=== PATIENT | female | born 1950 | race Caucasian/White ===

== ENCOUNTER 2023-07-01 17:04 | Inpatient (IN) | payer MEDICARE ==
[2023-07-01 17:41] LABS: Basophils % (A) 0 %; Eosinophils # (A) 0.1 k/uL (0-0.7); Eosinophils % (A) 2 %; HCT 37.4 % (34.0-46.0); HGB 13.3 gm/dL (11.4-16.0); Lymphocytes # (A) 2.9 k/uL (1.0-4.8); Lymphocytes % (A) 40 %; MCH 32.3 pg (25.0-35.0); MCHC 35.6 g/dL (31.0-37.0); MCV 90.9 fL (80.0-100.0); Monocytes # (A) 0.4 k/uL (0-1.0); Monocytes % (A) 5 %; Neutrophils # (A) 3.7 k/uL (1.3-7.7); Neutrophils % (A) 52 %; Platelet Count 276 k/uL (150-450); RBC 4.11 m/uL (3.80-5.40); RDW 13.1 % (11.5-15.5); WBC 7.1 k/uL (3.8-10.6)
--- NOTE | 2023-07-01 17:49 | ED ---
General Adult HPI - General Chief complaint: Fall Stated complaint: Fall, L Hip Pain Time Seen by Provider: 07/01/23 17:05 Source: patient, EMS, RN notes reviewed, old records reviewed Mode of arrival: EMS Limitations: no limitations - History of Present Illness Initial comments: This is a 70-year-old female who presents emergency Department who fell today and hurt her left hip patient was unable to get up and walk on her own because of the severe pain in the left hip. Patient also hit the back of her head she complains of a little bit of a headache and a little bit of neck soreness. Patient is not on any blood thinners. Patient denies any chest or back pain. Patient denies any other extremity pain. - Related Data Home Medications Medication Instructions Recorded Confirmed Amitriptyline HCl [Elavil] 25 mg PO QID 07/01/23 07/01/23 Meloxicam [Mobic] 15 mg PO DAILY 07/01/23 07/01/23 Allergies Allergy/AdvReac Type Severity Reaction Status Date / Time No Known Allergies Allergy Verified 07/01/23 19:00 Review of Systems ROS Statement: Those systems with pertinent positive or pertinent negative responses have been documented in the HPI. ROS Other: All systems not noted in ROS Statement are negative. Past Medical History Past Medical History: COPD History of Any Multi-Drug Resistant Organisms: None Reported Past Surgical History: Tonsillectomy Past Psychological History: No Psychological Hx Reported Smoking Status: Never smoker Past Alcohol Use History: Occasional Past Drug Use History: None Reported General Exam - General Exam Comments Initial Comments: GENERAL: Patient is well-developed and well-nourished. Patient is nontoxic and well- hydrated and is in moderate distress. ENT: Neck is soft and supple. No significant lymphadenopathy is noted. Oropharynx is clear. Moist mucous membranes. Neck has full range of motion without eliciting any pain. EYES: The sclera were anicteric and conjunctiva were pink and moist. Extraocular movements were intact and pupils were equal round and reactive to light. Eyelids were unremarkable. PULMONARY: Unlabored respirations. Good breath sounds bilaterally. No audible rales r honchi or wheezing was noted. CARDIOVASCULAR: There is a regular rate and rhythm without any murmurs gallops or rubs. ABDOMEN: Soft and nontender with normal bowel sounds. SKIN: Skin is clear with no lesions or rashes and otherwise unremarkable. NEUROLOGIC: Patient is alert and oriented x3. Cranial nerves II through XII are grossly intact. Motor and sensory are also intact. Normal speech, volume and content. Symmetrical smile. MUSCULOSKELETAL: Lateral left hip is tender to touch and very painful with any movement. LYMPHATICS: No significant lymphadenopathy is noted PSYCHIATRIC: Normal psychiatric evaluation. Limitations: no limitations Course Vital Signs 07/01/23 17:23 Temperature 99.0 F Pulse Rate 93 Respiratory 18 Rate Blood Pressure 164/94 O2 Sat by Pulse 94 L Oximetry Medical Decision Making - Medical Decision Making EKG was interpreted by myself shows a sinus rhythm at 93 bpm MO interval 280 one S is 86 QT interval 350 QTC is 400 per patient's EKG shows no ST segment elevation or depression. Was pt. sent in by a medical professional or institution (, [facility], [facility], urgent care, hospital, or fci...) When possible be specific @ -No Did you speak to anyone other than the patient for history (EMS, parent, family, police, friend...)? What history was obtained from this source @ -EMS gave some of the history as well as the Did you review nursing and triage notes (agree or disagree)? Why? @ -I reviewed and agree with nursing and triage notes Were old charts reviewed (outside hosp., previous admission, EMS record, old EKG, old radiological studies, urgent care reports/EKG's, fci records)? Report findings @ -No old charts were reviewed Differential Diagnosis (chest pain, altered mental status, abdominal pain women, abdominal pain men, vaginal bleeding, weakness, fever, dyspnea, syncope, headache, dizziness, GI bleed, back pain, seizure, CVA, palpatations, mental health, musculoskeletal)? @ -Differential Musculoskeletal Muscular strain, contusion, ligament sprain, fracture, arthritis, septic arthritis, bursitis, cellulitis, muscle spasm, nerve compression, DVT, arterial occlusion, herpes zoster, electrolyte abnormality, tumor.... This is not meant to be in all inclusive list EKG interpreted by me (3pts min.). @ -As above X-rays interpreted by me (1pt min.). @ -X-ray of the hip shows a fracture that is an intratrochanteric fracture of the left hip. Chest x-ray shows no acute abnormality CT interpreted by me (1pt min.). @ -CT of the brain and C-spine showed no acute abnormality U/S interpreted by me (1pt. min.). @ -None done What testing was considered but not performed or refused? (CT, X-rays, U/S, labs)? Why? @ -None What meds were considered but not given or refused? Why? @ -None Did you discuss the management of the patient with other professionals (professionals i.e. DrIsis, PA, [facility], lab, RT, psych nurse, vp digital marketing social media and crm, carpenter helper maintenance, teacher, state patrol officer, disease case manager rn)? Give summary @ -I spoke with Dr. Deleon he agreed to admit the patient Was critical care preformed (if so, how long)? @ -No Were there social determinants of health that impacted care today? How? (Homelessness, low income, unemployed, alcoholism, drug addiction, transportation, low edu. Level, literacy, decrease access to med. care, assisted, rehab)? @ -No Was there de-escalation of care discussed even if they declined (Discuss DNR or withdrawal of care, Hospice)? DNR status @ -No What co-morbidities impacted this encounter? (DM, HTN, Smoking, COPD, CAD, Cancer, CVA, ARF, Chemo, Hep., AIDS, mental health diagnosis, sleep apnea, morbid obesity)? @ -None Was patient admitted / discharged? Hospital course, mention meds given and route, prescriptions, significant lab abnormalities, going to OR and other pertinent info. @ -Patient had an intratrochanteric fracture of the left hip. Patient's CT of the head and neck were normal. Patient will be admitted to Dr. Deleon and has a medicine consult Undiagnosed new problem with uncertain prognosis? @ -No Drug Therapy requiring intensive monitoring for toxicity (Heparin, Nitro, Insulin, Cardizem)? @ -No Were any procedures done? @ -No Diagnosis/symptom? @ -Intertrochanteric fracture Acute, or Chronic, or Acute on Chronic? @ -Acute Uncomplicated (without systemic symptoms) or Complicated (systemic symptoms)? @ -Complicated Side effects of treatment? @ -No Exacerbation, Progression, or Severe Exacerbation? @ -No Poses a threat to life or bodily function? How? (Chest pain, USA, PA, pneumonia, PE, COPD, DKA, ARF, appy, cholecystitis, CVA, Diverticulitis, Homicidal, Suicidal, threat to staff... and all critical care pts) @ -No Diagnosis/symptom? @ -Scalp contusion Acute, or Chronic, or Acute on Chronic? @ -Acute Uncomplicated (without systemic symptoms) or Complicated (systemic symptoms)? @ -Complicated Side effects of treatment? @ -none Exacerbation, Progression, or Severe Exacerbation] @ -no Poses a threat to life or bodily function? @ -no - Lab Data Result diagrams: 07/01/23 17:33 07/01/23 17:33 Lab Results 07/01/23 07/01/23 Range/Units 17:33 17:33 WBC 7.1 (3.8-10.6) k/uL RBC 4.11 (3.80-5.40) m/uL Hgb 13.3 (11.4-16.0) gm/dL Hct 37.4 (34.0-46.0) % MCV 90.9 (80.0-100.0) fL MCH 32.3 (25.0-35.0) pg MCHC 35.6 (31.0-37.0) g/dL RDW 13.1 (11.5-15.5) % Plt Count 276 (150-450) k/uL MPV 7.0 Neutrophils % 52 % Lymphocytes % 40 % Monocytes % 5 % Eosinophils % 2 % Basophils % 0 % Neutrophils # 3.7 (1.3-7.7) k/uL Lymphocytes # 2.9 (1.0-4.8) k/uL Monocytes # 0.4 (0-1.0) k/uL Eosinophils # 0.1 (0-0.7) k/uL Basophils # 0.0 (0-0.2) k/uL Sodium 132 L (137-145) mmol/L Potassium 4.2 (3.5-5.1) mmol/L Chloride 97 L (98-107) mmol/L Carbon Dioxide 26 (22-30) mmol/L Anion Gap 9 mmol/L BUN 13 (7-17) mg/dL Creatinine 0.42 L (0.52-1.04) mg/dL Est GFR (CKD-EPI)AfAm >90 (>60 ml/min/1.73 sqM) Est GFR (CKD-EPI)NonAf >90 (>60 ml/min/1.73 sqM) Glucose 132 H (74-99) mg/dL Calcium 9.1 (8.4-10.2) mg/dL Total Bilirubin 0.6 (0.2-1.3) mg/dL AST 50 H (14-36) U/L ALT 35 H (4-34) U/L Alkaline Phosphatase 60 (38-126) U/L Total Protein 7.1 (6.3-8.2) g/dL Albumin 4.2 (3.5-5.0) g/dL Disposition Clinical Impression: Fall, Intertrochanteric fracture of left hip Disposition: ADMITTED IP TO THIS HOSP Referrals: Chito Gonzalez MD [Primary Care Provider] - 1-2 days Time of Disposition: 20:40
[2023-07-01 18:02] LABS: ALT 35 U/L (4-34); African American GFR (CKD) >90 (>60 ml/min/1.73 sqM); Anion Gap 9 mmol/L; Blood Urea Nitrogen 13 mg/dL (7-17); Calcium 9.1 mg/dL (8.4-10.2); Carbon Dioxide 26 mmol/L (22-30); Chloride 97 mmol/L (98-107); Glucose 132 mg/dL (74-99); Non-African American GFR(CKD) >90 (>60 ml/min/1.73 sqM); Sodium 132 mmol/L (137-145); Total Bilirubin 0.6 mg/dL (0.2-1.3)
[2023-07-01 18:12] LABS: AST 50 U/L (14-36); Albumin 4.2 g/dL (3.5-5.0); Alkaline Phosphatase 60 U/L (38-126); Potassium 4.2 mmol/L (3.5-5.1); Total Protein 7.1 g/dL (6.3-8.2)
--- NOTE | 2023-07-01 18:25 | XR ---
PROCEDURE: XR Hip LT and AP Pelvis - 3V DATE AND TIME: 07/01/2023 5:57 PM CLINICAL INDICATION: Pain after trauma TECHNIQUE: Department protocol COMPARISON: None FINDINGS: There is a comminuted intertrochanteric apex superior lateral fracture of the left femoral neck. The femoral head remains well-seated within the acetabulum. No other fracture identified. IMPRESSION: Left intertrochanteric fracture.
--- NOTE | 2023-07-01 18:35 | XR ---
EXAMINATION: XR chest 1V DATE AND TIME: 07/01/2023 5:57 PM CLINICAL INDICATION: Difficulty breathing TECHNIQUE: AP supine radiograph COMPARISON: None available. FINDINGS: The right hemidiaphragm is elevated, etiology unclear. The lungs appear to be clear, as seen. The pleural spaces appear to be negative, as seen. The cardiac silhouette is not enlarged. Mediastinum is not widened. The skeletal structures and soft tissues are negative for acute findings. IMPRESSION: No definite acute radiographic process. * Limitation: Supine radiography cannot exclude pneumothorax/pneumoperitoneum.
--- NOTE | 2023-07-01 18:56 | CT ---
EXAMINATION TYPE: CT brain romeroine wo con DATE OF EXAM: 07/01/2023 COMPARISON: NONE HISTORY: Pain, fall CT DLP: 1383.7 mGycm. Automated Exposure Control for Dose Reduction was Utilized. TECHNIQUE: CT scan of the head and cervical spine are performed without contrast. FINDINGS: There is no acute intracranial hemorrhage, mass effect, or midline shift identified. The ventricles and sulci are within normal limits in size. The globes are intact and the visualized sin uses are clear. Cervical spine is visualized in its entirety from C1 through upper thoracic levels and demonstrates s atisfactory alignment without evidence of acute fracture or dislocation. Prevertebral soft tissue sophie ears within normal limits. Moderate-marked multilevel cervical spondylosis changes noted. The C1-C2 a rticulation is unremarkable. IMPRESSION: 1. There is no acute fracture or dislocation evident in the cervical spine. 2. No acute intracranial hemorrhage, mass effect, or midline shift is seen.
[2023-07-01] MEDS ORDERED: SODIUM CHLORIDE 0.9% 1,000 ML IV ONE (20:40)
[2023-07-01] MEDS: HYDROmorphone 0.5 MG/0.5 ML SYRINGE IVP PRN (21:48)
[2023-07-02] MEDS: HYDROmorphone 0.5 MG/0.5 ML SYRINGE IVP PRN ×2 (01:21→14:29)
--- NOTE | 2023-07-02 10:31 | P.HPOR ---
History of Present Illness H&P Date: 07/02/23 Chief Complaint: let hip pain, recent fall History of Presenting Illness Patient is a pleasantly confused 73-year-old female who presented to the ER after a fall. Upon exam this morning patient is unable to recall incident or coming to the ER. Patient does state that she lives with her . She states she is normally ambulatory with the assistance of a walker. Patient reports that she did have a fall a few months ago hurting her left hip. She states that she did go to physical therapy and felt she was doing very well. Patient does have a past medical history of COPD. Patient denies any other orthopedic history. X-ray of the left hip and AP pelvis that was taken on 07/01/2023 demonstrates a left intertrochanteric fracture. Review of Systems Pertinent positives and negatives as discussed in HPI, a complete review of systems was performed and all other systems are negative. Physical Examination Inspection: Negative for any open fractures or significant erythema/ulcers. Mild bruising to the left hip. Sensation: Sensation is equal, symmetric, bilaterally intact throughout the upper and lower extremities Palpation: Nontender to palpation throughout bilateral upper and right lower extremities and throughout spine exam. Tenderness to palpation over the left hip. Range of motion: Patient does have full range of motion bilateral upper and right lower extremities on exam. Left lower extremity is externally rotated, limited range of motion due to injury and pain. Motor: 5/5 in all major motor groups in the bilateral upper and right lower extremities. 4-/5 left lower extremity Special tests: Negative Homans bilaterally. Negative Adama bilaterally. Negative clonus bilaterally. Left lower extremity log roll maneuver pain is reproduced. Neurovascular: Radial pulse intact, 2+ bilaterally. Cap refill under 3 seconds in digits upper extremities. Assessment and Plan Fall with trauma Left intertrochanteric hip fracture Maintain nothing by mouth status Surgical procedure scheduled for later today 07/02/2023, left hip IM nail fixation Continue with pain management: IV medication, ice therapy Activity: Bedrest I reviewed and discussed this case with my attending Dr. Deleon, whom has reviewed this chart and films and is in agreement with assessment and plan of care as outlined above. I have personally seen and examined the patient, performed the documentation and the assessment and plan as written. Number of minutes spent on the visit: 20m. Past Medical History Past Medical History: COPD History of Any Multi-Drug Resistant Organisms: None Reported Past Surgical History: Tonsillectomy Past Psychological History: No Psychological Hx Reported Smoking Status: Never smoker Past Alcohol Use History: Occasional Past Drug Use History: None Reported Medications and Allergies Home Medications Medication Instructions Recorded Confirmed Type Amitriptyline HCl [Elavil] 25 mg PO QID 07/01/23 07/01/23 History Meloxicam [Mobic] 15 mg PO DAILY 07/01/23 07/01/23 History Allergies Allergy/AdvReac Type Severity Reaction Status Date / Time No Known Allergies Allergy Verified 07/01/23 19:00 Results - Labs Labs: Abnormal Lab Results - Last 24 Hours (Table) 07/01/23 Range/Units 17:33 Sodium 132 L (137-145) mmol/L Chloride 97 L (98-107) mmol/L Creatinine 0.42 L (0.52-1.04) mg/dL Glucose 132 H (74-99) mg/dL AST 50 H (14-36) U/L ALT 35 H (4-34) U/L H & H 07/01/23 Range/Units 17:33 Hgb 13.3 (11.4-16.0) gm/dL Hct 37.4 (34.0-46.0) % Result Diagrams: 07/01/23 17:33 07/01/23 17:33
[2023-07-02] MEDS ORDERED: TRANEXAMIC ACID 1,000 MG in SODIUM CHLORIDE 0.9% 100 ML IVPB ONE (12:00)
[2023-07-02 12:08] LABS: Basophils % (A) 1 %; Eosinophils # (A) 0.1 k/uL (0-0.7); Eosinophils % (A) 1 %; HGB 11.6 gm/dL (11.4-16.0); Lymphocytes # (A) 3.2 k/uL (1.0-4.8); Lymphocytes % (A) 40 %; MCHC 33.2 g/dL (31.0-37.0); MCV 93.4 fL (80.0-100.0); Mean Platelet Volume 7.2; Monocytes # (A) 0.5 k/uL (0-1.0); Monocytes % (A) 7 %; Neutrophils # (A) 3.9 k/uL (1.3-7.7); Neutrophils % (A) 49 %; Platelet Count 253 k/uL (150-450); RBC 3.75 m/uL (3.80-5.40); RDW 13.5 % (11.5-15.5); WBC 7.9 k/uL (3.8-10.6)
[2023-07-02 12:16] LABS: African American GFR (CKD) >90 (>60 ml/min/1.73 sqM); Anion Gap 6 mmol/L; Blood Urea Nitrogen 16 mg/dL (7-17); Calcium 8.6 mg/dL (8.4-10.2); Carbon Dioxide 29 mmol/L (22-30); Chloride 98 mmol/L (98-107); Glucose 132 mg/dL (74-99); Magnesium 2.1 mg/dL (1.6-2.3); Non-African American GFR(CKD) >90 (>60 ml/min/1.73 sqM); Potassium 3.9 mmol/L (3.5-5.1); Sodium 133 mmol/L (137-145)
[2023-07-02 13:05] LABS: Prothrombin Time 10.4 sec (9.0-12.0)
[2023-07-02] MEDS ORDERED: ACETAMINOPHEN TAB 325 MG TAB PO PRN (16:08)
[2023-07-02] MEDS ORDERED: HYDROcodone/APAP 5-325MG 1 EACH TAB PO PRN (16:08)
[2023-07-02] MEDS ORDERED: HYDROmorphone 0.5 MG/0.5 ML SYRINGE IVP PRN (16:09)
--- NOTE | 2023-07-02 16:30 | P.CONS ---
History of Present Illness - Reason for Consult Consult date: 07/02/23 Medical management, med clearance, history of COPD - History of Present Illness This is a 73-year-old female who presented to the emergency department after suffering a mechanical fall while at the neurology office and mis-stepped off the curb and fell landing directly on her left hip and immediately having pain and inability to ambulate. Patient also hit her head while falling and who was with her reports no loss of consciousness and was alert the entire fall. Patient lives half the year in [place] as well as here in [place] and follows with neurologist Dr. Reyes outpatient and her PCP is Dr. Gonzalez when she is here in [place]. 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 Further history obtained from Dylan because patient was recently told she has COPD although was never a smoker and is currently following with neurology undergoing further workup for most likely Alzheimer's. Patient reports she has never smoked and denies any other illicit drug use and drinks approximately 3 ounces of wine per day. Patient had hip x-rays done showing a left comminuted intertrochanteric fracture of the left humeral neck with no other fracture identified. Chest x-ray showed no definite acute radiographic process in the lungs appear clear. Head CT spine done showing no acute fracture or dislocation evident in the cervical spine with no acute intracranial hemorrhage, mass effect, or midline shift seen. Patient was admitted under orthopedic services and we are consulted for medical clearance with medical management. EKG was done showing some inferior lead abnormalities with concerns for myocardial infarction and troponin was obtained and negative and we would recommend cardiology evaluation for cardiac clearance for surgical intervention. Cardiology has been placed on consult. Review Of Systems: Constitutional: No fever, no chills, no night sweats. No weight change. No weakness, fatigue or lethargy. No daytime sleepiness. EENT: No blurred vision or double vision, no loss of vision. No loss of Hearing, no ringing in the ears, no dizziness. No nasal drainage or congestion. No epistaxis. No sore throat. Reports a mild headache as she struck her head Lungs: No shortness of breath, cough, no sputum production. No wheezing. Cardiovascular: No chest pain, no lower extremity edema. No palpitations. No paroxysmal nocturnal dyspnea. No orthopnea. No lightheadedness or dizziness. No syncopal episodes. Abdominal: No abdominal pain. No nausea, vomiting. No diarrhea. No constipation. No bloody or tarry stools.. No loss of appetite. Reports feeling bloated. Genitourinary: No dysuria, increased frequency, urgency. No urinary retention. Musculoskeletal: No myalgias. No muscle weakness, no gait dysfunction, no frequent falls. No back pain. No neck pain. Reports left leg and hip pain Integumentary: No wounds, no lesions. No rash or pruritus. No unusual brui sing. No change in hair or nails. Neurologic: No aphasia. No facial droop. No change in mentation. No head injury. No headache. No paralysis. No paresthesia. Psychiatric: No depression. No anxiety. No mood swings. Endocrine: No abnormal blood sugars. No weight change. No excessive sweating or thirst. No cold intolerance. PHYSICAL EXAMINATION: GENERAL: The patient is alert and oriented x2, poor historian, Well developed, well nourished. HEENT: Pupils are round and equally reacting to light. EOMI. no scleral icterus. No conjunctival pallor. Normocephalic, atraumatic. No pharyngeal erythema. No thyromegaly. Mucous membranes are dry CARDIOVASCULAR: S1 and S2 muffled PULMONARY: Sounds clear to auscultation with no wheezing or rhonchi noted. ABDOMEN: soft. Nontender on exam. non-distended, normoactive bowel sounds. No palpable organomegaly. MUSCULOSKELETAL: No joint swelling or deformity. EXTREMITIES: No cyanosis, clubbing, or pedal edema. Left lower extremity is externally rotated and shortened, positive pulses noted NEUROLOGICAL: Gross neurological examination did not reveal any focal deficits. Diffuse weakness SKIN: No rashes. Assessment: Left comminuted intertrochanteric fracture of the left humeral neck status post Mechanical fall while standing and took a wrong step off of curb Headache, secondary to striking head while falling, CT negative for acute p rocess, no mass, no hemorrhage, no intracranial process noted History of vulvodynia History of recent chest x-ray showing COPD, although no history and was never a smoker Drinks one glass of wine daily, EtOH use Memory impairment, being worked up for dementia with neurology outpatient Abnormal EKG with concerns of an inferior lead myocardial infarction, troponin was negative, awaiting cardiology evaluation for surgical clearance GI prophylaxis DVT prophylaxis: Per orthopedics Full code Plan: Patient was admitted under orthopedic services after falling and having found a left intertrochanteric fracture currently requesting medical clearance for surgical intervention Patient report historian and gained further information from Dylan who is at bedside. Patient has no history of COPD although this is documented in her chart and reports she had a chest x-ray 2 months ago that showed COPD. Patient is never a smoker and is not around people that smoke Patient is a poor historian with memory impairment being worked up for dementia versus Alzheimer's outpatient by neurology and would recommend limiting IV narcotic use and monitor closely. Have added Toradol and low-dose [place] along with Tylenol Patient drinks 1 3 ounce glass of wine daily Patient struck her head on the fall and CT was done with no acute process or hemorrhage or mass noted 2-D echo ordered along with cardiology consultation. Troponin was negative and awaiting cardiac clearance for surgical intervention We will continue to follow with orthopedics during hospitalization. Thank you cramming for this consultation. The impression and plan of care has been dictated by Giovanna Denton, nurse practitioner as directed. Dr. Penny MD I have performed a history and examination and MDM of this patient, discussed the same with the dictator, and agree with the dictator's assessment and plan as written ,documented as a scribe. Based on total visit time, I have performed more than 50% of the visit. Any additional findings or plans will be noted. Past Medical History Past Medical History: COPD History of Any Multi-Drug Resistant Organisms: None Reported Past Surgical History: Tonsillectomy Past Psychological History: No Psychological Hx Reported Smoking Status: Never smoker Past Alcohol Use History: Occasional Past Drug Use History: None Reported Medications and Allergies Home Medications Medication Instructions Recorded Confirmed Type Amitriptyline HCl [Elavil] 25 mg PO QID 07/01/23 07/01/23 History Meloxicam [Mobic] 15 mg PO DAILY 07/01/23 07/01/23 History Allergies Allergy/AdvReac Type Severity Reaction Status Date / Time No Known Allergies Allergy Verified 07/01/23 19:00 Physical Exam Vitals: Vital Signs Temp Pulse Resp BP Pulse Ox 07/01/23 21:35 108 H 16 151/90 95 07/01/23 17:23 99.0 F 93 18 164/94 94 L Intake and Output 07/01/23 07/02/23 07/02/23 22:59 06:59 14:59 Other: Weight 63.503 kg Results CBC & Chem 7: 07/02/23 11:13 07/02/23 11:13 Labs: Abnormal Lab Results - Last 24 Hours (Table) 07/01/23 Range/Units 17:33 Sodium 132 L (137-145) mmol/L Chloride 97 L (98-107) mmol/L Creatinine 0.42 L (0.52-1.04) mg/dL Glucose 132 H (74-99) mg/dL AST 50 H (14-36) U/L ALT 35 H (4-34) U/L
[2023-07-02] MEDS ORDERED: TRANEXAMIC 1,000 MG/100ML-NACL 1,000 MG in SALINE 1 100ML.BAG IVPB ONE (17:22)
--- NOTE | 2023-07-02 17:34 | P.PN ---
Progress Note - Text Progress Note Date: 07/02/23 Orthopedic Surgery Risk Review Maria Isabel Santiago is a 73 yo female presenting for evaluation of sudden onset Left hip pain, inability to ambulate after fall from standing at home. Pt has dementia and most of the history was provided by at bedside. She thinks she fell in the garage or kitchen to the garage but does not remember well. found her down and called EMS. It was my pleasure to have seen and examined Maria Isabel Santiago. In our visit today we have had a chance to go over subjective complaints, physical examination findings and treatments including the natural course history without intervention and various interventional options. Her imaging demonstrates Left IT fracture, 4 part, unstable. On physical exam, pain with log roll left hip, ttp around hip, non ambulatory demonstrates pain with motion of LLE, which is NV intact at this time. I have explained to the patient that this fracture needs stabilization. Based on the patients imaging, physical exam, and the rapid progression and disabling nature of her symptoms, at this time I recommend surgery in the form or a: Left hip IMN fixation. I discussed the risk and benefits of this procedure at length with Maria Isabel Santiago and and family at bedside. Questions were invited and answered, and the patient wishes to proceed as outlined below. I also spoke with medicine on the case and they were worried about possible cardiac issues. EKG was questionable about an old AL. Trended Troponins were negative. CXR shows mild COPD changes. No active chest pain and she has no other cardiac hist ory known. Cardiology was contacted and Echo was done. There is no absolute contraindication to surgical intervention for this emergent broken hip. While she is higher risk for surgery, there is no optimization that likely will change her outcome in regards to surgery. Her NsQIP score shows a 8.5% risk of any complication. With a lower than average overall risk of surgical treatments for this fracture, which is acceptable. Currently, I am recommendin. Left hip intramedullary nail fixation 2. Review of surgical risks and benefits as well as an educational packet on the proposed surgical procedure. Risks: All surgical procedures come with inherent risks, including those related to positioning, anesthesia, intraoperative findings, and postoperative complications. It is important to understand that surgery does not come with any guarantee of a successful outcome as complications and adverse events are always possible. The patient was given a handout discussing the surgical procedure and risks associated with the intervention, both of which were discussed with the patient. These risks include but are not limited to the following: - Experiencing same, different or even worse symptoms compared to before surgery. - Requiring further surgery or other forms of treatment presently or at some time in the future . - On an extreme but fortunately relatively rare basis severe complication such as blindness, stroke, heart attack, temporary and/or permanent nerve injury, paralysis, coma, or may occur, sometimes without known explanation. - Surgical complications may include but are not limited to risk of infection, fluid accumulation in the surgical dissection site, including a seroma or hematoma, that requires additional surgery, wound drainage, bleeding, new numbness or weakness, vision changes/loss, spinal fluid leakage, non-healing and/or infected incision, headaches, difficulty or inability to swallow, hoarseness, hemopneumothorax, pneumothorax, injury to nerves, spinal cord, blood vessels, lymphatics or other vital organs (i.e., bowel injury, injury to the great vessels); heterotopic bone formation; complications related to the hardware such as screws, rods, including misplaced hardware, device failure, hardware fracture/breakage, or hardware loosening; retained surgical instrumentations or devices and the need for further surgery. - Medical risks of the planned surgery include but are not limited to generalized Infections to the whole body or local areas outside of the surgical site (sepsis), heart attack, bleeding, anaphylaxis, meningitis, seizure, epilepsy, hearing loss, burn gonzalez, laceration of the head or other areas of the body, bruising, hypersensitivity of the skin, bladder over distension; allergic reaction; shoulder injury related to positioning; fat, blood and air clots to other areas of the body like heart, lungs, brain; failure of internal organs such as lungs, kidneys, liver and excessive bleeding. If blood transfusions are necessary, note that transfusions may cause intolerance reactions such as anaph ylaxis or other complex reactions. Despite best efforts, the results of surgery might not heal in terms of bone, soft tissues such as skin, fascia, ligaments, and joints. [facility] has multiple operating rooms with single and overlapping rooms running daily. They currently function under the required guidelines as produced by the Senate Finance Committee with regards to the overlapping rooms and will continue to comply with changes to this policy as they occur. The requirements include and are complied with as follows: (1) the critical portions of the overlapping rooms will not occur at the same time, (2) the attending physician will be physically present during the critical portions of the procedure and immediately available during the entire case, and (3) a back-up attending is designated should the primary attending not be immediately available. The patient has had a chance to review all the listed information, has been given print outs detailing this information, and has had all his/her questions answered to their satisfaction. It was my pleasure to have seen and examined Maria Isabel Santiago. In our visit today we have had a chance to go over my understanding of our patient's current condition, the natural course history without intervention and various interventional options. Questions were invited and answered, and the patient wishes to proceed as outlined above. I have seen and examined the patient for 25 minutes and we have spent more than 50% of the time in repeat and detailed counseling about the patient's condition, its natural course history with out and as much as can be predicted with surgery and re-review of various surgical treatment options. In conclusion, Maria Isabel Santiago requested we proceed with the above suggested surgery and are willing to accept risks and limitations of the suggested surgery as nature of the disease process and our best attempts at treatment for the condition. Thank you again for allowing us to be part of your patient's care. Please don't hesitate to contact me if you have any further questions. Signed and authenticated by: Chandrakant Hanley [facility] [address] [facility], [address] [address]
[2023-07-02] MEDS ORDERED: LACTATED RINGERS 1,000 ML IV ONE (17:48)
[2023-07-02] MEDS ORDERED: KETOROLAC 15 MG/ML 1 ML VIAL IVP SCH (18:00)
[2023-07-02] MEDS ORDERED: PROPOFOL 10 MG/ML 20 ML VIAL IV ONE (18:11)
[2023-07-02] MEDS ORDERED: MIDAZOLAM 2 MG/2 ML VIAL ONE (18:11)
[2023-07-02] MEDS ORDERED: KETAMINE 10 MG/ML 20 ML VIAL ONE (18:11)
[2023-07-02] MEDS ORDERED: fentaNYL (PF) 50 MCG/ML 2 ML AMP ONE (18:11)
[2023-07-02] MEDS ORDERED: ONDANSETRON 4 MG/2 ML VIAL ONE (18:11)
[2023-07-02] MEDS ORDERED: TRANEXAMIC 1,000 MG/100ML-NACL PREMIX BAG ONE (18:11)
--- NOTE | 2023-07-02 18:12 | P.PN ---
Progress Note - Text Progress Note Date: 07/02/23 Spoke with pt and again. They informed us that they are [employer] and do not want any blood products after surgery. I discussed and explained the risks and benefits of this after this particular surgery and that transfusions after a surgery like this are not uncommon due to the type of fracture, trauma and propensity for bone to bleed. They understand and are willing to assume all the risks of surgery including the risks associated with blood loss from the surgery and not receiving life saving blood products should she need them. They are informed and understand everything as it was laid out. They are willing to proceed with surgery.
[2023-07-02] MEDS ORDERED: SODIUM CHLORIDE 0.9% 50 ML with ceFAZolin 2,000 MG IV ONE ×2 (18:16)
[2023-07-02] MEDS ORDERED: ceFAZolin 1,000 MG in SODIUM CHLORIDE 0.9% 1,000 ML IRRIGATION ONE (18:34)
[2023-07-02] MEDS ORDERED: ONDANSETRON 4 MG/2 ML VIAL IVP PRN (19:36)
[2023-07-02] MEDS ORDERED: NALOXONE 0.4 MG/ML 1 ML VIAL IV PRN (19:36)
--- NOTE | 2023-07-02 19:45 | XR ---
EXAMINATION TYPE: XR Hip Complete LT, FL guidance operating room Intraoperative/procedural fluoroscopic services were provided. Total fluoroscopy time is 1 minute 30 seconds with a total of 3 submitted images to PACS. Please see the operative/procedural note for furt her details. DAP: [phone] Gycm2
[2023-07-02] MEDS: PANTOPRAZOLE 40 MG/10 ML VIAL IVP SCH (21:30)
[2023-07-02] MEDS: ACETAMINOPHEN TAB 325 MG TAB PO SCH (21:31)
[2023-07-02] MEDS: SENNOSIDES-DOCUSATE SODIUM 1 EACH TAB PO SCH (21:32)
[2023-07-02] MEDS: SODIUM CHLORIDE 0.9% 1,000 ML IV SCH (21:32)
[2023-07-02] MEDS: traMADol 50 MG TAB PO PRN (22:09)
[2023-07-03] MEDS ORDERED: TRANEXAMIC 1,000 MG/100ML-NACL 1,000 MG in SALINE 1 100ML.BAG IVPB ONE
[2023-07-03] MEDS: ACETAMINOPHEN TAB 325 MG TAB PO SCH ×9 (00:15→22:56)
[2023-07-03] MEDS: traMADol 50 MG TAB PO PRN (06:33)
[2023-07-03 07:43] LABS: Basophils % (A) 0 %; Eosinophils # (A) 0.1 k/uL (0-0.7); Eosinophils % (A) 2 %; HCT 27.3 % (34.0-46.0); Lymphocytes # (A) 3.2 k/uL (1.0-4.8); Lymphocytes % (A) 44 %; MCH 32.6 pg (25.0-35.0); MCHC 35.1 g/dL (31.0-37.0); MCV 92.9 fL (80.0-100.0); Mean Platelet Volume 7.1; Monocytes # (A) 0.5 k/uL (0-1.0); Monocytes % (A) 7 %; Neutrophils # (A) 3.2 k/uL (1.3-7.7); Neutrophils % (A) 45 %; Platelet Count 205 k/uL (150-450); RBC 2.94 m/uL (3.80-5.40); RDW 13.3 % (11.5-15.5); WBC 7.2 k/uL (3.8-10.6)
[2023-07-03 07:45] LABS: HGB 9.6 gm/dL (11.4-16.0)
[2023-07-03] MEDS: SODIUM CHLORIDE 0.9% 1,000 ML IV SCH ×3 (08:12→21:41)
--- NOTE | 2023-07-03 09:37 | XR ---
EXAMINATION TYPE: XR Hip 2 views LT and AP Pelvis DATE OF EXAM: 07/03/2023 Comparison: 07/01/2023 Clinical History: 73-year-old female Left IM nail fixation Findings: Interval placement of antegrade intramedullary nail and hip screw fixation across the patient's inter trochanteric fracture of the proximal left femur. Displaced fracture fragment of the lesser trochante r. Scattered soft tissue air related to recent operation. Alignment has significantly improved and is grossly anatomic. Lateral skin taiwo. Impression: Uncomplicated postoperative appearance after internal fixation across the patient's left IT fracture.
--- NOTE | 2023-07-03 10:13 | P.PN ---
Subjective Progress Note Date: 07/03/23 Principal diagnosis: Recent fall with trauma Left hip pain Patient seen and examined this morning. Patient is resting comfortably in bed. She does report pain to the left hip with any motion. Patient states that physical therapy was just an intended range of motion exercises with her. Ice packs are applied. Encouraged patient to continue to work with staff and therapy, goal is to sit at bedside today. Surgical dressings to the left hip are clean dry and intact. No shadowing noted. Patient denies any numbness or tingling to lower extremity. Current hemoglobin is 9.6. We will continue to monitor. Patient is requesting no blood products. Ferrous sulfate has been initiated. No acute events overnight. Objective - Vital Signs Vital signs: Vital Signs Temp 97.6 F 07/03/23 07:02 Pulse 95 07/03/23 07:02 Resp 17 07/03/23 07:02 BP 119/72 07/03/23 07:02 Pulse Ox 96 07/03/23 08:56 FiO2 Intake & Output 07/02/23 07/03/23 07/03/23 18:59 06:59 18:59 Intake Total 851 100 Output Total 1400 750 Balance -549 -650 Weight 63.503 kg Intake: IV 851 100 Output: Urine 1400 550 Uretheral (Stallings) 1400 Estimated Blood Loss 200 Other: Voiding Method Indwelling Catheter - Exam Inspection: Negative for any open fractures or significant erythema/ulcers. Mild bruising to the left hip. Surgical incision to the left hip and lateral thigh. Dressings are clean dry and intact. No shadowing noted. Sensation: Sensation is equal, symmetric, bilaterally intact throughout the upper and lower extremities Palpation: Nontender to palpation throughout bilateral upper and right lower extremities and throughout spine exam. Tenderness to palpation over the left h ip. Range of motion: Patient does have full range of motion bilateral upper and right lower extremities on exam. Left lower extremity is externally rotated, limited range of motion due to injury and pain. Motor: 5/5 in all major motor groups in the bilateral upper and right lower extremities. 4-/5 left lower extremity Special tests: Negative Homans bilaterally. Negative Adama bilaterally. Negative clonus bilaterally. Left lower extremity log roll maneuver pain is reproduced. Neurovascular: Radial pulse intact, 2+ bilaterally. Cap refill under 3 seconds in digits upper extremities. - Labs CBC & Chem 7: 07/03/23 06:56 07/02/23 11:13 Labs: Abnormal Lab Results - Last 24 Hours (Table) 07/02/23 07/02/23 07/03/23 Range/Units 11:13 11:13 06:56 RBC 3.75 L 2.94 L (3.80-5.40) m/uL Hgb 9.6 L D (11.4-16.0) gm/dL Hct 27.3 L (34.0-46.0) % Sodium 133 L (137-145) mmol/L Glucose 132 H (74-99) mg/dL Assessment and Plan Assessment: Postop day 1: Left hip IM nail fixation Fall with trauma Left intertrochanteric hip fracture Plan: -Appreciate customs consultant and team management. -Activity: Ambulate QID, OOB all meals, up and about, limit lifting bending twisting to less than 5 lbs. Use walker or cane if needed for stability. -Daily PT/OT, increase ambulation strength and balance. -Pain control: Adequate at this time -Meds: reviewed -GI ppx: senna, Miralax -DC stallings when up and about, bedside commode if needed -DVT PPX: Aspirin -Hygiene: Shower today. Maintain dressing clean and dry. -Encourage IS 10x/hr -Dispo: Anticipate discharge to [facility] 07/05/23 *I reviewed and discussed this case with my attending Dr. Deleon, whom has reviewed this chart and films and is in agreement with assessment and plan of care as outlined above. I have personally seen and examined the patient, performed the documentation and the assessment and plan as written. Number of minutes spent on the visit: 20m.
[2023-07-03] MEDS: ASPIRIN 325 MG TAB PO SCH (10:17)
[2023-07-03] MEDS: PANTOPRAZOLE 40 MG/10 ML VIAL IVP SCH (10:17)
[2023-07-03] MEDS: FERROUS SULFATE 325 MG TAB PO SCH ×2 (10:17→16:49)
--- NOTE | 2023-07-03 15:23 | P.PN ---
Subjective Progress Note Date: 07/03/23 This is a 73-year-old female who presented to the emergency department after suffering a mechanical fall while at the neurology office and mis-stepped off the curb and fell landing directly on her left hip and immediately having pain and inability to ambulate. Patient also hit her head while falling and who was with her reports no loss of consciousness and was alert the entire fall. Patient lives half the year in [place] as well as here in [place] and follows with neurologist Dr. Reyes outpatient and her PCP is Dr. Gonzalez when she is here in [place]. 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 Further history obtained from Dylan because patient was recently told she has COPD although was never a smoker and is currently following with neurology undergoing further workup for most likely Alzheimer's. Patient reports she has never smoked and denies any other illicit drug use and drinks approximately 3 ounces of wine per day. Patient had hip x-rays done showing a left comminuted intertrochanteric fracture of the left humeral neck with no other fracture identified. Chest x-ray showed no definite acute radiographic process in the lungs appear clear. Head CT spine done showing no acute fracture or dislocation evident in the cervical spine with no acute intracranial hemorrhage, mass effect, or midline shift seen. Patient was admitted under orthopedic services and we are consulted for medical clearance with medical management. EKG was done showing some inferior lead abnormalities with concerns for myocardial infarction and troponin was obtained and negative and we would recommend cardiology evaluation for cardiac clearance for surgical intervention. Cardiology has been placed on consult. 07/03/2023 Patient is evaluated today she is postoperative left hip IM nail fixation secondary to fall with trauma and left intratrochanteric hip fracture. Patient reports significant pain postoperatively and has having difficulty ambulating with physical therapy. She is also requiring nasal cannula at 2 L does not wear any home oxygen. She does report having intermittent shortness of breath and states that she was recently diagnosed with COPD outpatient. She was having issues with urinary retention and then indwelling catheter has been placed. Cardiology following and an echocardiogram is currently pending labs today show white count of 7.2, hemoglobin 9.6 postoperatively. There is no BMP available for today. Hemodynamically she is stable. Review of Systems Constitutional: Denied any fatigue denied any fever. Cardio vascular: denied any chest pain, palpitations Gastrointestinal: denied any nausea, vomiting, diarrhea Pulmonary: Denied any shortness of breath cough Neurologic denied any new focal deficits All inpatient medications were reviewed and appropriate changes in these medications as dictated in the interval history and assessment and plan. PHYSICAL EXAMINATION: GENERAL: The patient is alert and oriented x2, poor historian, Well developed, well nourished. HEENT: Pupils are round and equally reacting to light. EOMI. no scleral icterus. No conjunctival pallor. Normocephalic, atraumatic. No pharyngeal erythema. No thyromegaly. Mucous membranes are dry CARDIOVASCULAR: S1 and S2 muffled PULMONARY: Sounds clear to auscultation with no wheezing or rhonchi noted. ABDOMEN: soft. Nontender on exam. non-distended, normoactive bowel sounds. No palpable organomegaly. MUSCULOSKELETAL: No joint swelling or deformity. EXTREMITIES: No cyanosis, clubbing, or pedal edema. Surgical left hip dressing intact with positive pedal pulses bilaterally NEUROLOGICAL: Gross neurological examination did not reveal any focal deficits. Diffuse weakness SKIN: No rashes. Assessment: Left comminuted intertrochanteric fracture of the left humeral neck status post Mechanical fall while standing and took a wrong step off of curb patient is stat us post left hip IM nail fixation Headache, secondary to striking head while falling, CT negative for acute process, no mass, no hemorrhage, no intracranial process noted headache has improved History of vulvodynia History of recent chest x-ray showing COPD, although no history and was never a smoker Drinks one glass of wine daily, EtOH use Memory impairment, being worked up for dementia with neurology outpatient Abnormal EKG with concerns of an inferior lead myocardial infarction, troponin was negative, awaiting echocardiogram GI prophylaxis DVT prophylaxis: Per orthopedics Full code Plan Patient will continue to monitor overnight on the medical floor for pain management. Echocardiogram is currently pending at this time. Patient needs encouragement to get up and ambulate and to set up in the chair for meals and also needs encouragement to use incentive spirometer 10 times an hour while awake. Recommend to repeat labs in the morning. Thank you kindly for this consultation we will continue to follow along with you this hospital stay. The impression and plan of care has been dictated by Sarah Bright, Nurse Practitioner as directed. Dr. Penny MD I have performed a history and physical examination and medical decision making of this patient, discussed the same with the dictator, and agree with the dictators assessment and plan as written, documented as a scribe. Based on total visit time, I have performed more than 50% of this visit. Objective - Vital Signs Vital signs: Vital Signs Temp 98.2 F 07/03/23 13:06 Pulse 106 H 07/03/23 13:06 Resp 17 07/03/23 13:06 BP 117/69 07/03/23 13:06 Pulse Ox 97 07/03/23 13:06 FiO2 Intake & Output 07/02/23 07/03/23 07/03/23 18:59 06:59 18:59 Intake Total 851 100 Output Total 1400 750 Balance -549 -650 Weight 63.503 kg Intake: IV 851 100 Output: Urine 1400 550 Uretheral (Jackson) 1400 Estimated Blood Loss 200 Other: Voiding Method Indwelling Catheter Indwelling Catheter - Labs CBC & Chem 7: 07/03/23 06:56 07/02/23 11:13 Labs: Abnormal Lab Results - Last 24 Hours (Table) 07/03/23 Range/Units 06:56 RBC 2.94 L (3.80-5.40) m/uL Hgb 9.6 L D (11.4-16.0) gm/dL Hct 27.3 L (34.0-46.0) % Assessment and Plan Time with Patient: Less than 30
[2023-07-03] MEDS ORDERED: MAGNESIUM HYDROXIDE 2,400 MG/30 ML CUP PO PRN (16:23)
[2023-07-03] MEDS: SENNOSIDES-DOCUSATE SODIUM 1 EACH TAB PO SCH (21:41)
--- NOTE | 2023-07-03 22:59 | P.CRDCN ---
History of Present Illness Consult date: 07/03/23 History of present illness: HISTORY OF PRESENTING ILLNESS 73-year-old who presented to the emergency department after suffering a mechanical fall while at the neurologist's office[place] Patient denies any past cardiac history. On admission she was noticed to have left hip fracture for this he was scheduled for a surgery and cardiology was consulted for perioperative evaluation due to abnormal ECG ECG shows normal sinus rhythm with Q waves in inferior leads. REVIEW OF SYSTEMS 14 point review of system is negative except what is mentioned above in HPI. PHYSICAL EXAMINATION Vital signs reviewed. Head: Normocephalic. Eyes: Sclerae nonicteric. Neck: Brisk carotid upstroke, no jugular venous distention. Lungs: Clear to auscultation. Heart: Regular rate and rhythm, S1-S2, no S3, no murmur or rub. Abdomen: Soft nontender, positive bowel sounds no organomegaly. Extremities: Limited mobility in the left lower extremity. 1+ pitting edema in left lower extremity ASSESSMENT Perioperative cardiac risk assessment Left hip fracture due to mechanical fall status post surgery Patient tolerated the surgery well without any cardiac complications. Memory impairment Plan Patient is already postoperative when I evaluated her today. She tolerated the surgery without cardiac complications. It is reasonable to obtain an echocardiogram because of EKG showing old Q waves inferiorly. Patient is on aspirin and no other cardiac medications. We will continue it. Further recommendations to follow echo results PLAN [] Past Medical History Past Medical History: COPD History of Any Multi-Drug Resistant Organisms: None Reported Past Surgical History: Tonsillectomy Past Anesthesia/Blood Transfusion Reactions: No Reported Reaction Additional Past Anesthesia/Blood Transfusion Reaction / Comment(s): does not allow blood transfusions Past Psychological History: No Psychological Hx Reported Smoking Status: Never smoker Past Alcohol Use History: Occasional Past Drug Use History: None Reported Medications and Allergies Home Medications Medication Instructions Recorded Confirmed Type Amitriptyline HCl [Elavil] 25 mg PO QID 07/01/23 07/01/23 History Meloxicam [Mobic] 15 mg PO DAILY 07/01/23 07/01/23 History Allergies Allergy/AdvReac Type Severity Reaction Status Date / Time No Known Allergies Allergy Verified 07/01/23 19:00 Physical Exam Vitals: Vital Signs Temp Pulse Resp BP BP Pulse Ox 07/03/23 20:04 98.8 F 99 18 146/83 95 07/03/23 13:06 98.2 F 106 H 17 117/69 97 07/03/23 08:56 96 07/03/23 07:02 97.6 F 95 17 119/72 98 07/03/23 01:09 98.4 F 103 H 18 116/71 96 Intake and Output 07/03/23 07/03/23 07/03/23 06:59 14:59 22:59 Output Total 550 200 Balance -550 -200 Output: Urine 550 200 Other: Voiding Method Indwelling Catheter Results 07/03/23 06:56 07/02/23 11:13 CBC 07/03/23 Range/Units 06:56 WBC 7.2 (3.8-10.6) k/uL RBC 2.94 L (3.80-5.40) m/uL Hgb 9.6 L D (11.4-16.0) gm/dL Hct 27.3 L (34.0-46.0) % Plt Count 205 (150-450) k/uL Current Medications Generic Name Dose Route Start Last Admin Trade Name Freq PRN Reason Stop Dose Admin Acetaminophen 650 mg 07/02/23 19:45 07/03/23 22:56 Acetaminophen Tab 325 Mg Tab PO Not Given Q6HR JESSICA Acetaminophen 650 mg 07/03/23 03:30 07/03/23 21:42 Acetaminophen Tab 325 Mg Tab PO 650 mg Q6H JESSICA Administration Hydrocodone Bitart/Acetaminophen 1 each 07/02/23 16:08 Hydrocodone/Apap 5-325mg 1 Each Tab PO Q6HR PRN Pain Aspirin 325 mg 07/03/23 09:00 07/03/23 10:17 Aspirin 325 Mg Tab PO 325 mg DAILY JESSICA Administration Ferrous Sulfate 325 mg 07/03/23 07:30 07/03/23 16:49 Ferrous Sulfate 325 Mg Tab PO 325 mg BID-W/MEALS JESSICA Administration Hydromorphone HCl 0.25 mg 07/02/23 16:09 07/02/23 23:44 Hydromorphone 0.5 Mg/0.5 Ml Syringe IVP 0.25 mg Q4HR PRN Administration Pain Sodium Chloride 1,000 mls @ 100 mls/hr 07/02/23 19:45 07/03/23 21:41 Saline 0.9% IV 100 mls/hr .Q10H JESSICA Administration Magnesium Hydroxide 2,400 mg 07/03/23 16:23 07/03/23 16:48 Magnesium Hydroxide 2,400 Mg/30 Ml Cup PO 2,400 mg DAILY PRN Administration Constipation Naloxone HCl 0.2 mg 07/02/23 19:36 Naloxone 0.4 Mg/Ml 1 Ml Vial IV Q2M PRN Opioid Reversal Ondansetron HCl 4 mg 07/02/23 19:36 Ondansetron 4 Mg/2 Ml Vial IVP DAILY PRN Nausea And Vomiting Pantoprazole Sodium 40 mg 07/02/23 16:45 07/03/23 10:17 Pantoprazole 40 Mg/10 Ml Vial IVP 40 mg DAILY JESSICA Administration Senna/Docusate Sodium 2 each 07/02/23 21:00 07/03/23 21:41 Sennosides-Docusate Sodium 1 Each Tab PO 2 each HS JESSICA Administration Tramadol HCl 50 mg 07/02/23 19:44 07/03/23 06:33 Tramadol 50 Mg Tab PO 50 mg QID PRN Administration Pain Intake and Output 07/03/23 07/03/23 07/03/23 06:59 14:59 22:59 Output Total 550 200 Balance -550 -200 Output: Urine 550 200 Other: Voiding Method Indwelling Catheter 07/03/23 06:56 07/02/23 11:13
[2023-07-04 01:56] LABS: Basophils % (A) 0 %; Eosinophils % (A) 0 %; HCT 25.8 % (34.0-46.0); Lymphocytes # (A) 2.5 k/uL (1.0-4.8); Lymphocytes % (A) 23 %; MCH 32.2 pg (25.0-35.0); MCHC 34.8 g/dL (31.0-37.0); MCV 92.3 fL (80.0-100.0); Mean Platelet Volume 7.2; Monocytes # (A) 0.5 k/uL (0-1.0); Monocytes % (A) 5 %; Neutrophils # (A) 7.8 k/uL (1.3-7.7); Neutrophils % (A) 71 %; Platelet Count 196 k/uL (150-450); RBC 2.79 m/uL (3.80-5.40); RDW 13.1 % (11.5-15.5)
[2023-07-04] MEDS: ACETAMINOPHEN TAB 325 MG TAB PO SCH ×7 (03:13→21:36)
[2023-07-04] MEDS: FERROUS SULFATE 325 MG TAB PO SCH ×2 (06:44→17:27)
[2023-07-04 07:39] LABS: Basophils % (A) 0 %; Eosinophils # (A) 0.1 k/uL (0-0.7); Eosinophils % (A) 1 %; HCT 25.9 % (34.0-46.0); Lymphocytes # (A) 3.8 k/uL (1.0-4.8); Lymphocytes % (A) 35 %; MCH 32.3 pg (25.0-35.0); MCHC 34.6 g/dL (31.0-37.0); MCV 93.2 fL (80.0-100.0); Mean Platelet Volume 7.2; Monocytes # (A) 0.5 k/uL (0-1.0); Monocytes % (A) 5 %; Neutrophils % (A) 56 %; Platelet Count 180 k/uL (150-450); RBC 2.78 m/uL (3.80-5.40); RDW 13.3 % (11.5-15.5); WBC 10.7 k/uL (3.8-10.6)
[2023-07-04 07:55] LABS: African American GFR (CKD) >90 (>60 ml/min/1.73 sqM); Anion Gap 5 mmol/L; Blood Urea Nitrogen 9 mg/dL (7-17); Calcium 7.5 mg/dL (8.4-10.2); Carbon Dioxide 27 mmol/L (22-30); Chloride 99 mmol/L (98-107); Glucose 118 mg/dL (74-99); Non-African American GFR(CKD) >90 (>60 ml/min/1.73 sqM); Potassium 3.3 mmol/L (3.5-5.1); Sodium 131 mmol/L (137-145)
--- NOTE | 2023-07-04 08:14 | CA ---
Transthoracic Echo Report Name: Maria Isabel Santiago Age: 73 Gender: F : 1950 Exam Date: 07/02/2023 13:18 Exam Location: [facility] Ht (in): 66 Wt (lb): 140 Ordering Physician: Giovanna Denton Attending/Referring Phys: Sanitizer Mu Pierre Procedure CPT: Indications: abn ekg, needs cardio clearance for surgery Cardiac Hx: Technical Quality: Technically difficult study Contrast 1: Lumason Total Dose (mL): 5 Contrast 2: Total Dose (mL): MEASUREMENTS (Male / Female) Normal Values 2D ECHO LV Diastolic Diameter PLAX 4.1 cm 4.2 - 5.9 / 3.9 - 5.3 cm LV Systolic Diameter PLAX 2.3 cm IVS Diastolic Thickness 1.0 cm 0.6 - 1.0 / 0.6 - 0.9 cm LVPW Diastolic Thickness 1.0 cm 0.6 - 1.0 / 0.6 - 0.9 cm LV Relative Wall Thickness 0.5 RV Internal Dim ED PLAX 2.6 cm LVOT Diameter 2.1 cm Aortic Root Diameter 2.6 cm LA Systolic Diameter LX 2.5 cm 3.0 - 4.0 / 2.7 - 3.8 cm LV Diastolic Volume MOD BP 51.8 cm??? 67 - 155 / 56 - 104 cm??? LV Systolic Volume MOD BP 23.3 cm??? 22 - 58 / 19 - 49 cm??? LV Ejection Fraction MOD BP 54.9 % >= 55 % LV Cardiac Index MOD BP 1750.7 cm???/min???m??? LV Diastolic Volume MOD 4C 63.2 cm??? LV Systolic Volume MOD 4C 24.4 cm??? LV Ejection Fraction MOD 4C 61.4 % LV Cardiac Index MOD 4C 2388.1 cm???/min???m??? LV Diastolic Length 4C 6.9 cm LV Systolic Length 4C 5.7 cm LV Diastolic Volume MOD 2C 37.9 cm??? LV Systolic Volume MOD 2C 21.9 cm??? LV Ejection Fraction MOD 2C 42.2 % LV Cardiac Index MOD 2C 982.4 cm???/min???m??? LV Diastolic Length 2C 6.2 cm LV Systolic Length 2C 5.4 cm LA Volume 28.6 cm??? 18 - 58 / 22 - 52 cm??? DOPPLER AV Peak Velocity 127.9 cm/s AV Peak Gradient 6.5 mmHg LVOT Peak Velocity 106.4 cm/s LVOT Peak Gradient 4.5 mmHg AV Area Cont Eq pk 2.9 cm??? MV Peak Velocity 125.5 cm/s MV Peak Gradient 6.3 mmHg MV Mean Velocity 61.6 cm/s MV Mean Gradient 1.9 mmHg MV Velocity Time Integral 24.3 cm Mitral E Point Velocity 56.6 cm/s Mitral A Point Velocity 116.3 cm/s Mitral E to A Ratio 0.5 MV Deceleration Time 88.0 ms TR Peak Velocity 209.2 cm/s TR Peak Gradient 17.5 mmHg Right Ventricular Systolic Press 22.7 mmHg PV Peak Velocity 106.8 cm/s PV Peak Gradient 4.6 mmHg FINDINGS Left Ventricle Normal LV size and wall thickness. Left ventricular ejection fraction is estimated at 55-60 %. No obvious regional wall motion abnormality Right Ventricle Normal right ventricular size. RVSP= 26mmhg. Right Atrium Normal right atrial size. Left Atrium Normal left atrial size. LA volume index= 17ml/m2 Mitral Valve Structurally normal mitral valve. No mitral regurgitation. Aortic Valve Trileaflet aortic valve. No aortic valve stenosis or regurgitation. Tricuspid Valve Structurally normal tricuspid valve. Pulmonic Valve Pulmonic valve not well visualized. No pulmonic regurgitation. Pericardium No pericardial effusion Aorta Normal size aortic root and proximal ascending aorta. CONCLUSIONS Normal LV size and systolic function with LVEF estimated at 55-60% No obvious regional wall motion abnormality No significant valvular dysfunction No significant chamber size abnormality No prior echo to compare with compare within database Previewed by: Dr Leroy Fleming (Electronically Signed) Final Date: 04 July 2023 08:13
[2023-07-04] MEDS ORDERED: MAGNESIUM CITRATE 296 ML BOTTLE PO ONE (08:30)
[2023-07-04] MEDS ORDERED: CAFFEINE-SODIUM BENZOATE 500 MG in SODIUM CHLORIDE 0.9% 1,000 ML IVPB ONE (08:30)
--- NOTE | 2023-07-04 09:07 | XR ---
EXAMINATION TYPE: XR chest 2V DATE OF EXAM: 07/04/2023 COMPARISON: 07/01/2023 HISTORY: Shortness of breath TECHNIQUE: Frontal and lateral views of the chest are obtained. FINDINGS: Scattered senescent parenchymal changes noted. Hyperinflation compatible with COPD. Chronic elevation right hemidiaphragm. No evidence for infiltrate. No evidence for atelectasis. Heart size is stable. Mediastinal structures are stable and grossly unremarkable. No evidence for hilar prominence. Degenerative changes dorsal spine. IMPRESSION: 1. No evidence for acute pulmonary disease.
[2023-07-04] MEDS: ASPIRIN 325 MG TAB PO SCH (10:09)
[2023-07-04] MEDS: SODIUM FERRIC GLUCONAT-SUCROSE 125 MG in SODIUM CHLORIDE 0.9% 100 ML IVPB SCH (10:09)
[2023-07-04] MEDS: PANTOPRAZOLE 40 MG/10 ML VIAL IVP SCH (10:09)
--- NOTE | 2023-07-04 10:19 | P.PN ---
Subjective Progress Note Date: 07/04/23 Principal diagnosis: Recent fall with trauma Left hip pain Patient seen and examined this morning. She remains pleasantly confused. Patient is resting comfortably in bed. Staff reports that patient did not tolerate activity with PT yesterday, she is not wanting to weight bear on the left lower extremity. Continue to encouraged patient to continue to work with staff and therapy, goal is to sit in chair today. Surgical dressings to the left hip are clean dry and intact. No shadowing noted. Patient denies any numbness or tingling to lower extremity. Current hemoglobin is 9.0, IV iron has been ordered. Additional medications have been ordered to assist with chronic con stipation. No acute events overnight. Objective - Vital Signs Vital signs: Vital Signs Temp 99.4 F 07/03/23 23:55 Pulse 102 H 07/03/23 23:55 Resp 18 07/03/23 23:55 BP 130/79 07/03/23 23:55 Pulse Ox 96 07/03/23 23:55 FiO2 Intake & Output 07/03/23 07/04/23 07/04/23 18:59 06:59 18:59 Output Total 200 400 Balance -200 -400 Output: Urine 200 400 Other: Voiding Method Indwelling Catheter Indwelling Catheter - Exam Inspection: Negative for any open fractures or significant erythema/ulcers. Mild bruising to the left hip. Surgical incision to the left hip and lateral thigh. Dressings are clean dry and intact. No shadowing noted. Sensation: Sensation is equal, symmetric, bilaterally intact throughout the uppe r and lower extremities Palpation: Nontender to palpation throughout bilateral upper and right lower extremities and throughout spine exam. Tenderness to palpation over the left hip. Range of motion: Patient does have full range of motion bilateral upper and right lower extremities on exam. Left lower extremity is externally rotated, limited range of motion due to injury and pain. Motor: 5/5 in all major motor groups in the bilateral upper and right lower extremities. 4-/5 left lower extremity Special tests: Negative Homans bilaterally. Negative Adama bilaterally. Negative clonus bilaterally. Left lower extremity log roll maneuver pain is reproduced. Neurovascular: Radial pulse intact, 2+ bilaterally. Cap refill under 3 seconds in digits upper extremities. - Labs CBC & Chem 7: 07/04/23 06:57 07/04/23 06:57 Labs: Abnormal Lab Results - Last 24 Hours (Table) 07/03/23 07/04/23 Range/Units 06:56 01:20 WBC 11.0 H (3.8-10.6) k/uL RBC 2.94 L 2.79 L (3.80-5.40) m/uL Hgb 9.6 L D 9.0 L (11.4-16.0) gm/dL Hct 27.3 L 25.8 L (34.0-46.0) % Neutrophils # 7.8 H (1.3-7.7) k/uL Microbiology - Last 24 Hours (Table) 07/02/23 14:30 Blood Culture - Preliminary Blood Assessment and Plan Assessment: Postop day 2: Left hip IM nail fixation Fall with trauma Left intertrochanteric hip fracture Plan: -Appreciate lactation consultant and team management. -Activity: Ambulate QID, OOB all meals, up and about, limit lifting bending twisting to less than 5 lbs. Use walker or cane if needed for stability. -Daily PT/OT, increase ambulation strength and balance. -Pain control: Adequate at this time -Meds: reviewed -GI ppx: senna, Miralax -DC stallings when up and about, bedside commode if needed -DVT PPX: Aspirin -Hygiene: Shower today. Maintain dressing clean and dry. -Encourage IS 10x/hr -Dispo: Anticipate discharge to [facility] 07/05/23 *I reviewed and discussed this case with my attending Dr. Deleon, whom has reviewed this chart and films and is in agreement with assessment and plan of care as outlined above. I have personally seen and examined the patient, performed the documentation and the assessment and plan as written. Number of minutes spent on the visit: 20m.
[2023-07-04] MEDS: traMADol 50 MG TAB PO PRN (12:11)
[2023-07-04] MEDS: polyethylene glycoL 3350 17 GM POWD.PACK PO SCH (12:12)
[2023-07-04] MEDS ORDERED: POTASSIUM CHLORIDE ER 20 MEQ TAB.ER PO STA (14:19)
[2023-07-04] MEDS ORDERED: FUROSEMIDE 10 MG/ML 2 ML VIAL IV ONE (14:20)
--- NOTE | 2023-07-04 14:22 | P.PN ---
Subjective Progress Note Date: 07/04/23 This is a 73-year-old female who presented to the emergency department after suffering a mechanical fall while at the neurology office and mis-stepped off the curb and fell landing directly on her left hip and immediately having pain and inability to ambulate. Patient also hit her head while falling and who was with her reports no loss of consciousness and was alert the entire fall. Patient lives half the year in [place] as well as here in [place] and follows with neurologist Dr. Reyes outpatient and her PCP is Dr. Gonzalez when she is here in [place]. 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 Further history obtained from Dylan because patient was recently told she has COPD although was never a smoker and is currently following with neurology undergoing further workup for most likely Alzheimer's. Patient reports she has never smoked and denies any other illicit drug use and drinks approximately 3 ounces of wine per day. Patient had hip x-rays done showing a left comminuted intertrochanteric fracture of the left humeral neck with no other fracture identified. Chest x-ray showed no definite acute radiographic process in the lungs appear clear. Head CT spine done showing no acute fracture or dislocation evident in the cervical spine with no acute intracranial hemorrhage, mass effect, or midline shift seen. Patient was admitted under orthopedic services and we are consulted for medical clearance with medical management. EKG was done showing some inferior lead abnormalities with concerns for myocardial infarction and troponin was obtained and negative and we would recommend cardiology evaluation for cardiac clearance for surgical intervention. Cardiology has been placed on consult. 07/03/2023 Patient is evaluated today she is postoperative left hip IM nail fixation secondary to fall with trauma and left intratrochanteric hip fracture. Patient reports significant pain postoperatively and has having difficulty ambulating with physical therapy. She is also requiring nasal cannula at 2 L does not wear any home oxygen. She does report having intermittent shortness of breath and states that she was recently diagnosed with COPD outpatient. She was having issues with urinary retention and then indwelling catheter has been placed. Cardiology following and an echocardiogram is currently pending labs today show white count of 7.2, hemoglobin 9.6 postoperatively. There is no BMP available for today. Hemodynamically she is stable. On 07/04/2023 Patient is evaluated today sitting up in the bed she continues on 2 L of nasal cannula and having some mild shortness of breath. Patient was also hypoxic and had a decrease in her sodium down to 131 today. She has been receiving IV fluids normal saline at 100 miles per hour. Chest x-ray shows no acute pulmonary disease there is hyperinflation compatible with COPD and chronic elevation of the right hemidiaphragm. Patient will be given IV Lasix 1 and repeat labs in the morning. Patient to work with PT OT daily and recommending to sit up in the chair for all meals. Patient will require subacute rehab her is nervous to take her home as she is having difficulty even sitting on the edge of the bed. She also has indwelling catheter in place for urinary retention. Review of Systems Constitutional: Denied any fatigue denied any fever. Cardio vascular: denied any chest pain, palpitations Gastrointestinal: denied any nausea, vomiting, diarrhea Pulmonary: With mild shortness of breath cough Neurologic denied any new focal deficits All inpatient medications were reviewed and appropriate changes in these medications as dictated in the interval history and assessment and plan. PHYSICAL EXAMINATION: GENERAL: The patient is alert and oriented x2, poor historian, Well developed, well nourished. On 2 L nasal cannula HEENT: Pupils are round and equally reacting to light. EOMI. no scleral icterus. No conjunctival pallor. Normocephalic, atraumatic. No pharyngeal erythema. No th yromegaly. Mucous membranes are dry CARDIOVASCULAR: S1 and S2 muffled PULMONARY: Sounds clear to auscultation with no wheezing or rhonchi noted. ABDOMEN: soft. Nontender on exam. non-distended, normoactive bowel sounds. No palpable organomegaly. MUSCULOSKELETAL: No joint swelling or deformity. EXTREMITIES: No cyanosis, clubbing, or pedal edema. Surgical left hip dressing intact with positive pedal pulses bilaterally NEUROLOGICAL: Gross neurological examination did not reveal any focal deficits. Diffuse weakness SKIN: No rashes. Assessment: Left comminuted intertrochanteric fracture of the left humeral neck status post Mechanical fall while standing and took a wrong step off of curb patient is status post left hip IM nail fixation Headache, secondary to striking head while falling, CT negative for acute process, no mass, no hemorrhage, no intracranial process noted headache has improved Acute hypoxic respiratory failure under investigation History of vulvodynia History of recent chest x-ray showing COPD, although no history and was never a smoker Drinks one glass of wine daily, EtOH use Memory impairment, being worked up for dementia with neurology outpatient Abnormal EKG with concerns of an inferior lead myocardial infarction, troponin was negative, awaiting echocardiogram GI prophylaxis DVT prophylaxis: Per orthopedics Full code Plan Patient will continue to monitor overnight on the medical floor for pain management. Patient needs encouragement to get up and ambulate and to set up in the chair for meals and also needs encouragement to use incentive spirometer 10 times an hour while awake. Patient will be given a dose of IV Lasix. Continue with indwelling catheter. Recommend to repeat labs in the morning. Thank you kindly for this consultation we will continue to follow along with you this hospital stay. The impression and plan of care has been dictated by Sarah Bright, Nurse Practitioner as directed. Dr. Penny MD I have performed a history and physical examination and medical decision making of this patient, discussed the same with the dictator, and agree with the dictators assessment and plan as written, documented as a scribe. Based on total visit time, I have performed more than 50% of this visit. Objective - Vital Signs Vital signs: Vital Signs Temp 98.4 F 07/04/23 07:24 Pulse 104 H 07/04/23 07:24 Resp 18 07/04/23 07:24 BP 146/78 07/04/23 07:24 Pulse Ox 93 L 07/04/23 07:24 FiO2 Intake & Output 07/03/23 07/04/23 07/04/23 18:59 06:59 18:59 Output Total 200 400 Balance -200 -400 Output: Urine 200 400 Other: Voiding Method Indwelling Catheter Indwelling Catheter - Labs CBC & Chem 7: 07/04/23 06:57 07/04/23 06:57 Labs: Abnormal Lab Results - Last 24 Hours (Table) 07/04/23 07/04/23 07/04/23 Range/Units 01:20 06:57 06:57 WBC 11.0 H 10.7 H (3.8-10.6) k/uL RBC 2.79 L 2.78 L (3.80-5.40) m/uL Hgb 9.0 L 9.0 L (11.4-16.0) gm/dL Hct 25.8 L 25.9 L (34.0-46.0) % Neutrophils # 7.8 H (1.3-7.7) k/uL Sodium 131 L (137-145) mmol/L Potassium 3.3 L (3.5-5.1) mmol/L Creatinine 0.42 L (0.52-1.04) mg/dL Glucose 118 H (74-99) mg/dL Calcium 7.5 L (8.4-10.2) mg/dL Microbiology - Last 24 Hours (Table) 07/02/23 14:30 Blood Culture - Preliminary Blood Assessment and Plan Time with Patient: Less than 30
[2023-07-04] MEDS: POTASSIUM CHLORIDE ER 20 MEQ TAB.ER PO SCH (17:27)
[2023-07-04] MEDS: SENNOSIDES-DOCUSATE SODIUM 1 EACH TAB PO SCH (21:37)
[2023-07-05] MEDS: ACETAMINOPHEN TAB 325 MG TAB PO SCH ×5 (00:35→17:54)
[2023-07-05] MEDS: FERROUS SULFATE 325 MG TAB PO SCH ×2 (06:30→17:55)
[2023-07-05] MEDS: polyethylene glycoL 3350 17 GM POWD.PACK PO SCH (08:09)
[2023-07-05] MEDS: POTASSIUM CHLORIDE ER 20 MEQ TAB.ER PO SCH (08:18)
[2023-07-05] MEDS: SODIUM FERRIC GLUCONAT-SUCROSE 125 MG in SODIUM CHLORIDE 0.9% 100 ML IVPB SCH (08:18)
[2023-07-05] MEDS: ASPIRIN 325 MG TAB PO SCH (08:19)
[2023-07-05] MEDS: PANTOPRAZOLE 40 MG/10 ML VIAL IVP SCH (08:19)
--- NOTE | 2023-07-05 10:50 | P.PN ---
Subjective HISTORY OF PRESENT ILLNESS: Patient is status post left hip IM nail fixation. Patient examined this morning at the bedside. Patient denies chest pain or pressure. She denies shortness of breath. Denies dizziness or lightheadedness. Patient's vital signs are stable. Echocardiogram completed revealing ejection fraction 55-60% with no obvious regional wall motion abnormalities or valvular dysfunction. PHYSICAL EXAM: VITAL SIGNS: Reviewed. GENERAL: Well-developed in no acute distress. NECK: Supple. No JVD or thyromegaly LUNGS: Respirations even and unlabored. Lungs essentially clear to auscultation bilaterally. HEART: Regular rate and rhythm. S1 and S2 heard. EXTREMITIES: Normal range of motion. No clubbing or cyanosis. Peripheral pulses intact. No lower extremity edema ASSESSMENT: Status post mechanical fall Status post left hip IM nail fixation PLAN: Patient is currently stable from a cardiac standpoint with no further inpatient recommendations Patient to follow up post discharge with Dr. Fleming We will sign off. Please reconsult if needed Nurse practitioner note has been reviewed by physician. Signing provider agrees with the documented findings, assessment, and plan of care. Objective - Vital Signs Vital signs: Vital Signs Temp 98.0 F 07/05/23 07:11 Pulse 95 07/05/23 07:11 Resp 16 07/05/23 07:11 BP 122/71 07/05/23 07:11 Pulse Ox 92 L 07/05/23 07:11 FiO2 Intake & Output 07/04/23 07/05/23 07/05/23 18:59 06:59 18:59 Intake Total 340 Output Total 500 227 Balance -160 -227 Intake: Intake, IV Titration 100 Amount Sodium Chloride 0.9% 1, 100 000 ml @ 100 mls/hr IV . Q10H [facility] Rx#:[id number] Oral 240 Output: Urine 500 225 Stool 2 Other: Voiding Method Indwelling Catheter Indwelling Catheter Indwelling Catheter # Bowel Movements 3 - Labs CBC & Chem 7: 07/04/23 06:57 07/04/23 06:57 Labs: Microbiology - Last 24 Hours (Table) 07/02/23 14:30 Blood Culture - Preliminary Blood
[2023-07-05 11:12] LABS: BUN/Creat Ratio 19.25 Ratio (12.00-20.00); Blood Urea Nitrogen 7.7 mg/dL (9.0-27.0); Calcium 8.2 mg/dL (8.7-10.3); Carbon Dioxide 29.2 mmol/L (21.6-31.8); Chloride 102 mmol/L (96-109); Glucose 111 mg/dL (70-110); Magnesium 2.5 mg/dL (1.5-2.4); Potassium 3.6 mmol/L (3.5-5.5); Sodium 138 mmol/L (135-145)
--- NOTE | 2023-07-05 13:26 | P.PN ---
Subjective Progress Note Date: 07/05/23 This is a 73-year-old female who presented to the emergency department after suffering a mechanical fall while at the neurology office and mis-stepped off the curb and fell landing directly on her left hip and immediately having pain and inability to ambulate. Patient also hit her head while falling and who was with her reports no loss of consciousness and was alert the entire fall. Patient lives half the year in [place] as well as here in [place] and follows with neurologist Dr. Reyes outpatient and her PCP is Dr. Gonzalez when she is here in [place]. 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 Further history obtained from Dylan because patient was recently told she has COPD although was never a smoker and is currently following with neurology undergoing further workup for most likely Alzheimer's. Patient reports she has never smoked and denies any other illicit drug use and drinks approximately 3 ounces of wine per day. Patient had hip x-rays done showing a left comminuted intertrochanteric fracture of the left humeral neck with no other fracture identified. Chest x-ray showed no definite acute radiographic process in the lungs appear clear. Head CT spine done showing no acute fracture or dislocation evident in the cervical spine with no acute intracranial hemorrhage, mass effect, or midline shift seen. Patient was admitted under orthopedic services and we are consulted for medical clearance with medical management. EKG was done showing some inferior lead abnormalities with concerns for myocardial infarction and troponin was obtained and negative and we would recommend cardiology evaluation for cardiac clearance for surgical intervention. Cardiology has been placed on consult. 07/03/2023 Patient is evaluated today she is postoperative left hip IM nail fixation secondary to fall with trauma and left intratrochanteric hip fracture. Patient reports significant pain postoperatively and has having difficulty ambulating with physical therapy. She is also requiring nasal cannula at 2 L does not wear any home oxygen. She does report having intermittent shortness of breath and states that she was recently diagnosed with COPD outpatient. She was having issues with urinary retention and then indwelling catheter has been placed. Cardiology following and an echocardiogram is currently pending labs today show white count of 7.2, hemoglobin 9.6 postoperatively. There is no BMP available for today. Hemodynamically she is stable. On 07/04/2023 Patient is evaluated today sitting up in the bed she continues on 2 L of nasal cannula and having some mild shortness of breath. Patient was also hypoxic and had a decrease in her sodium down to 131 today. She has been receiving IV fluids normal saline at 100 miles per hour. Chest x-ray shows no acute pulmonary disease there is hyperinflation compatible with COPD and chronic elevation of the right hemidiaphragm. Patient will be given IV Lasix 1 and repeat labs in the morning. Patient to work with PT OT daily and recommending to sit up in the chair for all meals. Patient will require subacute rehab her is nervous to take her home as she is having difficulty even sitting on the edge of the bed. She also has indwelling catheter in place for urinary retention. 07/05/2023 Patient is evaluated today she is postoperative day #2 left hip IM nail fixation due to a traumatic fall with fracture of the left humeral neck. Patient reports improvement in her pain management currently on a regimen of [place], tramadol. Patient is receiving IV Ferrlecit and also oral iron for an anemia with a hemoglobin of 9.0. Patient has not had iron studies done per recommended to follow up with iron studies outpatient this is a normocytic anemia. Review of Systems Constitutional: Denied any fatigue denied any fever. Cardio vascular: denied any chest pain, palpitations Gastrointestinal: denied any nausea, vomiting, diarrhea Pulmonary: With mild shortness of breath cough Neurologic denied any new focal deficits All inpatient medications were reviewed and appropriate changes in these medic ations as dictated in the interval history and assessment and plan. PHYSICAL EXAMINATION: GENERAL: The patient is alert and oriented x2, poor historian, Well developed, well nourished. On 2 L nasal cannula HEENT: Pupils are round and equally reacting to light. EOMI. no scleral icterus. No conjunctival pallor. Normocephalic, atraumatic. No pharyngeal erythema. No thyromegaly. Mucous membranes are dry CARDIOVASCULAR: S1 and S2 muffled PULMONARY: Sounds clear to auscultation with no wheezing or rhonchi noted. ABDOMEN: soft. Nontender on exam. non-distended, normoactive bowel sounds. No palpable organomegaly. MUSCULOSKELETAL: No joint swelling or deformity. EXTREMITIES: No cyanosis, clubbing, or pedal edema. Surgical left hip dressing intact with positive pedal pulses bilaterally NEUROLOGICAL: Gross neurological examination did not reveal any focal deficits. Diffuse weakness SKIN: No rashes. Assessment: Left comminuted intertrochanteric fracture of the left humeral neck status post Mechanical fall while standing and took a wrong step off of curb patient is status post left hip IM nail fixation Headache, secondary to striking head while falling, CT negative for acute pro cess, no mass, no hemorrhage, no intracranial process noted headache has improved Acute hypoxic respiratory failure under investigation, this is likely due to mild volume overload as patient was slightly hyponatremic after receiving IV fluids. Patient did receive a dose of IV Lasix and has since been weaned to room air and her sodium level has now normalized to 138. Hyponatremic hypervolemic as above improved with IV Lasix Normocytic anemia currently receiving oral ferrous sulfate twice a day and IV Ferrlecit on the hospital. Recommended to follow up with iron studies outpatient to determine if this is an iron deficiency anemia. History of vulvodynia History of recent chest x-ray showing COPD, although no history and was never a smoker Drinks one glass of wine daily, EtOH use Memory impairment, being worked up for dementia with neurology outpatient Abnormal EKG with concerns of an inferior lead myocardial infarction, troponin was negative echocardiogram was essentially normal with normal LV function. GI prophylaxis DVT prophylaxis: Per orthopedics Full code Plan Medically patient is stable for discharge, cardiology has also cleared the patient for discharge and recommending to follow-up with Dr. Fleming in the office. Patient will discharge and a low-dose of lasix as well as oral potassium supplementation. Echocardiogram was essentially normal however patient did have some mild volume overload and improved with IV Lasix. Her shortness of breath and oxygenation is also improved. Continue to encourage incentive spirometer 10 times an hour while awake. Recommended to continue on a bowel regimen while using narcotics for pain management. Patient will need outpatient iron studies and can continue on oral ferrous sulfate for now on discharge as recommended by orthopedics. Also recommend to repeat labs in 2-3 days. Should follow up with PCP Dr Gonzalez in 1 to 2 days. Follow up with orthopedics as recommended. DVT prophylaxis currently with aspirin 325 mg daily. The impression and plan of care has been dictated by Sarah Bright, Nurse Practitioner as directed. Dr. Penny MD I have performed a history and physical examination and medical decision making of this patient, discussed the same with the dictator, and agree with the dictators assessment and plan as written, documented as a scribe. Based on total visit time, I have performed more than 50% of this visit. Objective - Vital Signs Vital signs: Vital Signs Temp 98.0 F 07/05/23 07:11 Pulse 95 07/05/23 07:11 Resp 16 07/05/23 07:11 BP 122/71 07/05/23 07:11 Pulse Ox 92 L 07/05/23 07:11 FiO2 Intake & Output 07/04/23 07/05/23 07/05/23 18:59 06:59 18:59 Intake Total 340 Output Total 500 227 Balance -160 -227 Intake: Intake, IV Titration 100 Amount Sodium Chloride 0.9% 1, 100 000 ml @ 100 mls/hr IV . Q10H [facility] Rx#:[id number] Oral 240 Output: Urine 500 225 Stool 2 Other: Voiding Method Indwelling Catheter Indwelling Catheter Indwelling Catheter # Bowel Movements 3 - Labs CBC & Chem 7: 07/04/23 06:57 07/05/23 06:40 Labs: Abnormal Lab Results - Last 24 Hours (Table) 07/05/23 Range/Units 06:40 BUN 7.7 L (9.0-27.0) mg/dL Creatinine 0.4 L (0.6-1.5) mg/dL Glucose 111 H (70-110) mg/dL Calcium 8.2 L (8.7-10.3) mg/dL Magnesium 2.5 H (1.5-2.4) mg/dL Microbiology - Last 24 Hours (Table) 07/02/23 14:30 Blood Culture - Preliminary Blood Assessment and Plan Time with Patient: Less than 30
--- NOTE | 2023-07-05 14:58 | P.PN ---
Subjective Progress Note Date: 07/05/23 Principal diagnosis: Recent fall with trauma Left hip pain Patient seen and examined this morning. She remains pleasantly confused. Patient is resting comfortably in bed. Continue to encouraged patient to continue to work with staff and therapy. Patient is not tolerating activity well, will benefit from YU at discharge. Surgical dressings to the left hip are clean dry and intact. No shadowing noted. Patient denies any numbness or tingling to lower extremity. No acute events overnight. Objective - Vital Signs Vital signs: Vital Signs Temp 98.2 F 07/05/23 00:42 Pulse 91 07/05/23 00:42 Resp 16 07/05/23 00:42 BP 122/74 07/05/23 00:42 Pulse Ox 97 07/05/23 00:42 FiO2 Intake & Output 07/04/23 07/05/23 07/05/23 18:59 06:59 18:59 Intake Total 340 Output Total 500 227 Balance -160 -227 Intake: Intake, IV Titration 100 Amount Sodium Chloride 0.9% 1, 100 000 ml @ 100 mls/hr IV . Q10H [facility] Rx#:[id number] Oral 240 Output: Urine 500 225 Stool 2 Other: Voiding Method Indwelling Catheter Indwelling Catheter # Bowel Movements 3 - Exam Inspection: Negative for any open fractures or significant erythema/ulcers. Mild bruising to the left hip. Surgical incision to the left hip and lateral thigh. Dressings are clean dry and intact. No shadowing noted. Sensation: Sensation is equal, symmetric, bilaterally intact throughout the upper and lower extremities Palpation: Nontender to palpation throughout bilateral upper and right lower extremities and throughout spine exam. Tenderness to palpation over the left hip. Range of motion: Patient does have full range of motion bilateral upper and right lower extremities on exam. Left lower extremity is externally rotated, limited range of motion due to injury and pain. Motor: 5/5 in all major motor groups in the bilateral upper and right lower extremities. 4-/5 left lower extremity Special tests: Negative Homans bilaterally. Negative Adama bilaterally. Negative clonus bilaterally. Left lower extremity log roll maneuver pain is reproduced. Neurovascular: Radial pulse intact, 2+ bilaterally. Cap refill under 3 seconds in digits upper extremities. - Labs CBC & Chem 7: 07/04/23 06:57 07/05/23 06:40 Labs: Abnormal Lab Results - Last 24 Hours (Table) 07/04/23 07/04/23 Range/Units 06:57 06:57 WBC 10.7 H (3.8-10.6) k/uL RBC 2.78 L (3.80-5.40) m/uL Hgb 9.0 L (11.4-16.0) gm/dL Hct 25.9 L (34.0-46.0) % Sodium 131 L (137-145) mmol/L Potassium 3.3 L (3.5-5.1) mmol/L Creatinine 0.42 L (0.52-1.04) mg/dL Glucose 118 H (74-99) mg/dL Calcium 7.5 L (8.4-10.2) mg/dL Microbiology - Last 24 Hours (Table) 07/02/23 14:30 Blood Culture - Preliminary Blood Assessment and Plan Assessment: Postop day 3: Left hip IM nail fixation Fall with trauma Left intertrochanteric hip fracture Plan: -Appreciate merchandising consultant and team management. -Activity: Ambulate QID, OOB all meals, up and about, limit lifting bending twisting to less than 5 lbs. Use walker or cane if needed for stability. -Daily PT/OT, increase ambulation strength and balance. -Pain control: Adequate at this time -Meds: reviewed -GI ppx: senna, Miralax -DC stallings when up and about, bedside commode if needed -DVT PPX: Aspirin -Hygiene: Shower today. Maintain dressing clean and dry. -Encourage IS 10x/hr -Dispo: Anticipate discharge to [facility] when bed available *I reviewed and discussed this case with my attending Dr. Deleon, whom has reviewed this chart and films and is in agreement with assessment and plan of care as outlined above. I have personally seen and examined the patient, performed the documentation and the assessment and plan as written. Number of minutes spent on the visit: 20m.
[2023-07-05] MEDS: traMADol 50 MG TAB PO PRN ×2 (15:31→21:35)
[2023-07-05] MEDS: SENNOSIDES-DOCUSATE SODIUM 1 EACH TAB PO SCH (21:11)
[2023-07-06] MEDS: ACETAMINOPHEN TAB 325 MG TAB PO SCH ×4 (01:32→17:26)
[2023-07-06] MEDS: FERROUS SULFATE 325 MG TAB PO SCH ×2 (09:13→17:26)
[2023-07-06] MEDS: PANTOPRAZOLE 40 MG/10 ML VIAL IVP SCH (09:13)
[2023-07-06] MEDS: ASPIRIN 325 MG TAB PO SCH (09:13)
[2023-07-06] MEDS: POTASSIUM CHLORIDE ER 20 MEQ TAB.ER PO SCH (09:13)
[2023-07-06] MEDS: SODIUM FERRIC GLUCONAT-SUCROSE 125 MG in SODIUM CHLORIDE 0.9% 100 ML IVPB SCH (09:13)
[2023-07-06] MEDS: polyethylene glycoL 3350 17 GM POWD.PACK PO SCH (09:13)
--- NOTE | 2023-07-06 10:07 | P.PN ---
Subjective Progress Note Date: 07/06/23 Principal diagnosis: Recent fall with trauma Left hip pain Patient seen and examined this morning. Patient is resting comfortably in bed. She states when she awoke this morning she forgot where she was and her situation. Patient states she had strange dreams last night. She remains pleasantly confused. Patient is cleared from orthopedic standpoint to subacute rehab when bed available. Surgical dressings to the left hip are clean dry and intact. Patient denies any numbness or tingling to lower extremity. No acute events overnight. Objective - Vital Signs Vital signs: Vital Signs Temp 98.2 F 07/06/23 07:09 Pulse 92 07/06/23 07:09 Resp 15 07/06/23 07:09 BP 123/74 07/06/23 07:09 Pulse Ox 93 L 07/06/23 07:09 FiO2 Intake & Output 07/05/23 07/06/23 07/06/23 18:59 06:59 18:59 Intake Total 720 Output Total 0 600 Balance 720 -600 Intake: Oral 720 Output: Urine 600 Post Void Residual 0 Other: Voiding Method Indwelling Catheter Bedside Commode # Bowel Movements 2 1 - Exam Inspection: Negative for any open fractures or significant erythema/ulcers. Mild bruising to the left hip. Surgical incision to the left hip and lateral thigh. Dressings are clean dry and intact. Sensation: Sensation is equal, symmetric, bilaterally intact throughout the upper and lower extremities Palpation: Nontender to palpation throughout bilateral upper and right lower extremities and throughout spine exam. Tenderness to palpation over the left hip. Range of motion: Patient does have full range of motion bilateral upper and right lower extremities on exam. Left lower extremity is externally rotated, limited range of motion due to injury and pain. Motor: 5/5 in all major motor groups in the bilateral upper and right lower extremities. 4-/5 left lower extremity Special tests: Negative Homans bilaterally. Negative Adama bilaterally. Negative clonus bilaterally. Left lower extremity log roll maneuver pain is reproduced. Neurovascular: Radial pulse intact, 2+ bilaterally. Cap refill under 3 seconds in digits upper extremities. - Labs CBC & Chem 7: 07/04/23 06:57 07/05/23 06:40 Labs: Abnormal Lab Results - Last 24 Hours (Table) 07/05/23 Range/Units 06:40 BUN 7.7 L (9.0-27.0) mg/dL Creatinine 0.4 L (0.6-1.5) mg/dL Glucose 111 H (70-110) mg/dL Calcium 8.2 L (8.7-10.3) mg/dL Magnesium 2.5 H (1.5-2.4) mg/dL Microbiology - Last 24 Hours (Table) 07/02/23 14:30 Blood Culture - Preliminary Blood Assessment and Plan Assessment: Postop day 4: Left hip IM nail fixation Fall with trauma Left intertrochanteric hip fracture Plan: -Appreciate area development consultant and team management. -Activity: Ambulate QID, OOB all meals, up and about, limit lifting bending twisting to less than 5 lbs. Use walker or cane if needed for stability. -Daily PT/OT, increase ambulation strength and balance. -Pain control: Adequate at this time -Meds: reviewed -GI ppx: senna, Miralax -DVT PPX: Aspirin -Hygiene: Shower today. Maintain dressing clean and dry. -Encourage IS 10x/hr -Dispo: Anticipate discharge to [facility] when bed available. Patient is cleared from orthopedic standpoint. *I reviewed and discussed this case with my attending Dr. Deleon, whom has reviewed this chart and films and is in agreement with assessment and plan of care as outlined above. I have personally seen and examined the patient, performed the documentation and the assessment and plan as written. Number of minutes spent on the visit: 20m.
--- NOTE | 2023-07-06 14:42 | P.PN ---
Subjective Progress Note Date: 07/06/23 This is a 73-year-old female who presented to the emergency department after suffering a mechanical fall while at the neurology office and mis-stepped off the curb and fell landing directly on her left hip and immediately having pain and inability to ambulate. Patient also hit her head while falling and who was with her reports no loss of consciousness and was alert the entire fall. Patient lives half the year in [place] as well as here in [place] and follows with neurologist Dr. Reyes outpatient and her PCP is Dr. Gonzalez when she is here in [place]. 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 Further history obtained from Dylan because patient was recently told she has COPD although was never a smoker and is currently following with neurology undergoing further workup for most likely Alzheimer's. Patient reports she has never smoked and denies any other illicit drug use and drinks approximately 3 ounces of wine per day. Patient had hip x-rays done showing a left comminuted intertrochanteric fracture of the left humeral neck with no other fracture identified. Chest x-ray showed no definite acute radiographic process in the lungs appear clear. Head CT spine done showing no acute fracture or dislocation evident in the cervical spine with no acute intracranial hemorrh age, mass effect, or midline shift seen. Patient was admitted under orthopedic services and we are consulted for medical clearance with medical management. EKG was done showing some inferior lead abnormalities with concerns for myocardial infarction and troponin was obtained and negative and we would recommend cardiology evaluation for cardiac clearance for surgical intervention. Cardiology has been placed on consult. 07/03/2023 Patient is evaluated today she is postoperative left hip IM nail fixation secondary to fall with trauma and left intratrochanteric hip fracture. Patient reports significant pain postoperatively and has having difficulty ambulating with physical therapy. She is also requiring nasal cannula at 2 L does not wear any home oxygen. She does report having intermittent shortness of breath and states that she was recently diagnosed with COPD outpatient. She was having issues with urinary retention and then indwelling catheter has been placed. Cardiology following and an echocardiogram is currently pending labs today show white count of 7.2, hemoglobin 9.6 postoperatively. There is no BMP available for today. Hemodynamically she is stable. On 07/04/2023 Patient is evaluated today sitting up in the bed she continues on 2 L of nasal cannula and having some mild shortness of breath. Patient was also hypoxic and had a decrease in her sodium down to 131 today. She has been receiving IV fluids normal saline at 100 miles per hour. Chest x-ray shows no acute pulmonary disease there is hyperinflation compatible with COPD and chronic elevation of the right hemidiaphragm. Patient will be given IV Lasix 1 and repeat labs in the morning. Patient to work with PT OT daily and recommending to sit up in the chair for all meals. Patient will require subacute rehab her is nervous to take her home as she is having difficulty even sitting on the edge of the bed. She also has indwelling catheter in place for urinary retention. 07/05/2023 Patient is evaluated today she is postoperative day #2 left hip IM nail fixation due to a traumatic fall with fracture of the left humeral neck. Patient reports improvement in her pain management currently on a regimen of [place], tramadol. Patient is receiving IV Ferrlecit and also oral iron for an anemia with a hemoglobin of 9.0. Patient has not had iron studies done per recommended to follow up with iron studies outpatient this is a normocytic anemia. 07/06/2023 Patient is seen in follow-up currently sitting up in the chair status post left hip intramedullary nail fixation being followed by orthopedics. Patient has been working with physical therapy continues with weakness and reports continued heaviness of that left lower extremity. Patient has been doing her exercises and elevating while at rest. Patient continues to report abdominal bloating and reports is passing gas and had bowel movements. Patient is urinating with no difficulty. Will add simethicone gas drops as needed. Vital signs are stable. Patient is afebrile with no reported chest pain or shortness of breath. Patient does have incentive spirometer at bedside but has been instructed to continue using at least 10 times every hour until awake. Patient awaiting insurance authorization for rehab. Review of Systems Constitutional: Denied any fatigue denied any fever. Cardiovascular: denied any chest pain, palpitations Gastrointestinal: denied any nausea, vomiting, diarrhea, reports is passing gas and having bowel movement, reports feeling bloated Pulmonary: Denies shortness of breath , reports occasional cough Neurologic denied any new focal deficits All inpatient medications were reviewed and appropriate changes in these medications as dictated in the interval history and assessment and plan. PHYSICAL EXAMINATION: GENERAL: The patient is alert and oriented x2, poor historian, Well developed, well nourished. Currently on room air HEENT: Pupils are round and equally reacting to light. EOMI. no scleral icterus. No conjunctival pallor. Normocephalic, atraumatic. No pharyngeal erythema. No thyromegaly. Mucous membranes are dry CARDIOVASCULAR: S1 and S2 muffled PULMONARY: Sounds clear to auscultation with no wheezing or rhonchi noted. ABDOMEN: soft. Nontender on exam. non-distended, normoactive bowel sounds. No palpable organomegaly. MUSCULOSKELETAL: No joint swelling or deformity. EXTREMITIES: No cyanosis, clubbing, or pedal edema. Surgical left hip dressing intact with positive pedal pulses bilaterally NEUROLOGICAL: Gross neurological examination did not reveal any focal deficits. Diffuse weakness SKIN: No rashes. Assessment: Left comminuted intertrochanteric fracture of the left humeral neck status post Mechanical fall while standing and took a wrong step off of curb patient is status post left hip IM nail fixation Headache, secondary to striking head while falling, CT negative for acute process, no mass, no hemorrhage, no intracranial process noted, headache has im proved Acute hypoxic respiratory failure , likely due to mild volume overload as patient was slightly hyponatremic after receiving IV fluids. Patient did receive a dose of IV Lasix and has since been weaned to room air and her sodium level has now normalized to 138. Hyponatremia, hypervolemic as above improved with IV Lasix, improved Normocytic anemia currently receiving oral ferrous sulfate twice a day and IV Ferrlecit on the hospital. Recommended to follow up with iron studies outpatient to determine if this is an iron deficiency anemia. History of vulvodynia History of recent chest x-ray showing COPD, although no history and was never a smoker Drinks one glass of wine daily, EtOH use Memory impairment, being worked up for dementia with neurology outpatient Abnormal EKG with concerns of an inferior lead myocardial infarction, troponin was negative echocardiogram was essentially normal with normal LV function. GI prophylaxis DVT prophylaxis: Per orthopedics Full code Plan: Patient currently sitting up in the chair working with physical therapy daily awaiting insurance authorization is patient will be going to [facility] for continued strength and mobility Patient is medically stable for discharge once insurance authorization has been obtained. Patient has been cleared by cardiology recommending outpatient follow-up. Patient to continue with a low-dose of Lasix and potassium s upplement on discharge Instructed the patient to continue using incentive spirometer at least 10 times every hour while awake Encouraged to increase activity as tolerated with restrictions per orthopedics Continue current bowel regimen and will add simethicone drops as patient continues to report gas and bloating Pain management and DVT prophylaxis per orthopedics Patient will need outpatient iron studies with follow-up labs in the next few days Follow-up with primary care provider Dr. Gonzalez on discharge We will continue to follow with orthopedics during hospitalization. Thank you kindly for this consultation. The impression and plan of care has been dictated by Giovanna Denton, Nurse Practitioner as directed. Dr. Penny MD I have performed a history and examination and MDM of this patient, discussed the same with the dictator, and agree with the dictator's assessment and plan as written ,documented as a scribe. Based on total visit time, I have performed more than 50% of the visit. Objective - Vital Signs Vital signs: Vital Signs Temp 98.2 F 07/06/23 07:09 Pulse 92 07/06/23 07:09 Resp 15 07/06/23 07:09 BP 123/74 07/06/23 07:09 Pulse Ox 93 L 07/06/23 07:09 FiO2 Intake & Output 07/05/23 07/06/23 07/06/23 18:59 06:59 18:59 Intake Total 720 Output Total 0 600 Balance 720 -600 Intake: Oral 720 Output: Urine 600 Post Void Residual 0 Other: Voiding Method Indwelling Catheter Bedside Commode # Bowel Movements 2 1 - Labs CBC & Chem 7: 07/04/23 06:57 07/05/23 06:40 Labs: Abnormal Lab Results - Last 24 Hours (Table) 07/05/23 Range/Units 06:40 BUN 7.7 L (9.0-27.0) mg/dL Creatinine 0.4 L (0.6-1.5) mg/dL Glucose 111 H (70-110) mg/dL Calcium 8.2 L (8.7-10.3) mg/dL Magnesium 2.5 H (1.5-2.4) mg/dL Microbiology - Last 24 Hours (Table) 07/02/23 14:30 Blood Culture - Preliminary Blood
[2023-07-06] MEDS: SIMETHICONE 40 MG/0.6 ML DROPS 2,000 MG/30 ML BOTTLE PO SCH ×2 (17:31→21:07)
[2023-07-06] MEDS: SENNOSIDES-DOCUSATE SODIUM 1 EACH TAB PO SCH (21:07)
[2023-07-07] MEDS: ACETAMINOPHEN TAB 325 MG TAB PO SCH ×3 (00:35→12:35)
[2023-07-07 07:35] VITALS: BP 163/80; PULSE 95; RESP 16; TEMP 98.6
[2023-07-07] MEDS: SIMETHICONE 40 MG/0.6 ML DROPS 2,000 MG/30 ML BOTTLE PO SCH ×2 (08:28→12:36)
[2023-07-07] MEDS: PANTOPRAZOLE 40 MG/10 ML VIAL IVP SCH (08:28)
[2023-07-07] MEDS: ASPIRIN 325 MG TAB PO SCH (08:28)
[2023-07-07] MEDS: POTASSIUM CHLORIDE ER 20 MEQ TAB.ER PO SCH (08:28)
[2023-07-07] MEDS: FERROUS SULFATE 325 MG TAB PO SCH (08:28)
[2023-07-07] MEDS: polyethylene glycoL 3350 17 GM POWD.PACK PO SCH (08:28)
[2023-07-07] MEDS: traMADol 50 MG TAB PO PRN (08:40)
[2023-07-07] MEDS: SODIUM FERRIC GLUCONAT-SUCROSE 125 MG in SODIUM CHLORIDE 0.9% 100 ML IVPB SCH (08:41)
--- NOTE | 2023-07-07 09:10 | P.PN ---
Subjective Progress Note Date: 07/07/23 Principal diagnosis: Recent fall with trauma Left hip pain Patient seen and examined this morning. Patient is resting comfortably in bed. Spouse is at bedside. They are both looking forward to patient being discharged to [facility]. Patient is cleared from orthopedic standpoint to subacute rehab when bed available. Surgical dressings to the left hip are clean dry and intact. Patient denies any numbness or tingling to lower extremity. No acute events overnight. Objective - Vital Signs Vital signs: Vital Signs Temp 98.6 F 07/07/23 06:50 Pulse 95 07/07/23 06:50 Resp 16 07/07/23 06:50 BP 163/80 07/07/23 06:50 Pulse Ox 95 07/07/23 06:50 FiO2 Intake & Output 07/06/23 07/07/23 07/07/23 18:59 06:59 18:59 Intake Total 100 Output Total 1100 Balance 100 -1100 Intake: Intake, IV Titration 100 Amount Sodium Ferric Gluconat- 100 Sucrose 125 mg In Sodium Chloride 0.9% 100 ml @ 100 mls/hr IVPB DAILY [facility] Rx#:[id number] Output: Urine 1100 Other: Voiding Method Toilet Bedside Commode # Voids 2 # Bowel Movements 1 - Exam Inspection: Negative for any open fractures or significant erythema/ulcers. Mild bruising to the left hip. Surgical incision to the left hip and lateral thigh. Dressings are clean dry and intact. Sensation: Sensation is equal, symmetric, bilaterally intact throughout the upper and lower extremities Palpation: Nontender to palpation throughout bilateral upper and right lower extremities and throughout spine exam. Tenderness to palpation over the left hip. Range of motion: Patient does have full range of motion bilateral upper and right lower extremities on exam. Left lower extremity is externally rotated, limited range of motion due to injury and pain. Motor: 5/5 in all major motor groups in the bilateral upper and right lower extremities. 4-/5 left lower extremity Special tests: Negative Homans bilaterally. Negative Adama bilaterally. Negative clonus bilaterally. Left lower extremity log roll maneuver pain is reproduced. Neurovascular: Radial pulse intact, 2+ bilaterally. Cap refill under 3 seconds in digits upper extremities. - Labs CBC & Chem 7: 07/04/23 06:57 07/05/23 06:40 Labs: Microbiology - Last 24 Hours (Table) 07/02/23 14:30 Blood Culture - Preliminary Blood Assessment and Plan Assessment: Postop day 5: Left hip IM nail fixation Fall with trauma Left intertrochanteric hip fracture Plan: -Appreciate transportation consultant and team management. -Activity: Ambulate QID, OOB all meals, up and about, limit lifting bending twisting to less than 5 lbs. Use walker or cane if needed for stability. -Daily PT/OT, increase ambulation strength and balance. -Pain control: Adequate at this time -Meds: reviewed -GI ppx: senna, Miralax -DVT PPX: Aspirin -Hygiene: Shower today. Maintain dressing clean and dry. -Encourage IS 10x/hr -Dispo: Anticipate discharge to [facility] when bed available. Patient is cleared from orthopedic standpoint. *I reviewed and discussed this case with my attending Dr. Deleon, whom has reviewed this chart and films and is in agreement with assessment and plan of care as outlined above. I have personally seen and examined the patient, performed the documentation and the assessment and plan as written. Number of minutes spent on the visit: 20m.
[2023-07-07] MEDS ORDERED: amLODIPine 5 MG TAB PO SCH (10:00)
--- NOTE | 2023-07-07 10:39 | P.DS ---
Providers Date of admission: 07/01/23 20:42 Expected date of discharge: 07/07/23 Attending physician: Chandrakant Deleon DO Consults: 07/01/23 20:40 Consult Physician Urgent Consulting Provider: Madelaine Osman Reason/Comments: Medical clearance for surgery Do you want consulting provider notified?: Yes Primary care physician: [facility] Course: Hospital Course: The patient was evaluated preoperatively and found to have the diagnosis of left intertrochanteric hip fracture. They underwent appropriate preoperative care and were willing to undergo the intended procedure. They underwent a successful left IM nail fixation, were recovered appropriately and sent to the floor. While on the floor they worked with physical therapy, occupational therapy and nursing to enhance their recovery experience. Their pain was well controlled through their stay and they were started on appropriate medications, DVT ppx modalities, activity and dietary needs. Daily labs were monitored closely, and transfusions were only used when necessary. Medicine as well as other consulting services have made their input and have helped with our team approach and multidisciplinary care. PT milestones have been met and passed and they have made the recommendation of subacute rehab for this patient and treating providers agree with this care path. The patient will be discharged home with appropriate medications, instructions and follow-up information and in stable condition. Patient Condition at Discharge: Good Plan - Discharge Summary Discharge Rx Participant: No New Discharge Prescriptions: New Ferrous Sulfate [Iron (65 MG Elemental)] 325 mg PO BID-W/MEALS #60 tab Furosemide [Lasix] 20 mg PO DAILY #30 tab Acetaminophen Tab [Tylenol] 650 mg PO Q6HR tab traMADol HCl [Ultram] 50 mg PO Q6H PRN #42 tab PRN Reason: Pain Potassium Chloride ER [K-Dur 10] 10 meq PO DAILY #30 tab Magnesium Hydroxide [Milk of Magnesia] 2,400 mg PO DAILY PRN ml PRN Reason: Constipation Famotidine [Pepcid] 20 mg PO BID #60 tablet Sennosides/Docusate Sodium [Senna Plus 8.6-50 mg Softgel] 1 each PO DAILY #20 capsule Aspirin 325 mg PO DAILY #30 tab Continue Amitriptyline HCl [Elavil] 25 mg PO QID Meloxicam [Mobic] 15 mg PO DAILY Discharge Medication List Amitriptyline HCl [Elavil] 25 mg PO QID 07/01/23 [History] Meloxicam [Mobic] 15 mg PO DAILY 07/01/23 [History] Acetaminophen Tab [Tylenol] 650 mg PO Q6HR tab 07/05/23 [Rx] Famotidine [Pepcid] 20 mg PO BID #60 tablet 07/05/23 [Rx] Ferrous Sulfate [Iron (65 MG Elemental)] 325 mg PO BID-W/MEALS #60 tab 07/05/23 [Rx] Furosemide [Lasix] 20 mg PO DAILY #30 tab 07/05/23 [Rx] Magnesium Hydroxide [Milk of Magnesia] 2,400 mg PO DAILY PRN ml 07/05/23 [Rx] Potassium Chloride ER [K-Dur 10] 10 meq PO DAILY #30 tab 07/05/23 [Rx] Aspirin 325 mg PO DAILY #30 tab 07/06/23 [Rx] Sennosides/Docusate Sodium [Senna Plus 8.6-50 mg Softgel] 1 each PO DAILY #20 capsule 07/06/23 [Rx] traMADol HCl [Ultram] 50 mg PO Q6H PRN #42 tab 07/06/23 [Rx] Follow up Appointment(s)/Referral(s): Leroy Fleming MD [Medical Doctor] - 1 Week Chandrakant Deleon DO [Doctor of Osteopathic Medicine] - 2 Weeks Chito Gonzalez MD [Primary Care Provider] - 1-2 days Ambulatory/Diagnostic Orders: Basic Metabolic Panel [LAB.AMB] Time Frame: 3 Days, Location: None Selected Complete Blood Count w/diff [LAB.AMB] Time Frame: 3 Days, Location: None Selected Patient Instructions/Handouts: Hip Fracture (GEN), ORIF of Hip Fracture (DC) Activity/Diet/Wound Care/Special Instructions: Medically patient is stable for discharge Recommend to continue on oral lasix 20 mg daily and while patient is on lasix recommend to continue oral potassium supplementation. Follow up with cardiology on discharge in 1 to 2 weeks Recommend to repeat labs in 2 to 3 days. Discharge Disposition: TRANSFER TO SNF/ECF
[2023-07-07 11:19] VITALS: BMI 22.6
--- NOTE | 2023-07-07 13:40 | P.OP ---
Date of Procedure: 07/02/23 Preoperative Diagnosis: 1. 3 PART LEFT INTERTROCHANTERIC FRACTURE, DISPLACED 2. S/P FFS Postoperative Diagnosis: 1. 3 PART LEFT INTERTROCHANTERIC FRACTURE, DISPLACED 2. S/P FFS Procedure(s) Performed: 1. IM NAIL FIXATION WITH REDUCTION OF LEFT IT FRACTURE (85321) Implants: TURNER AN NEPHEW TFN SHORT 125 Anesthesia: GETA Surgeon: Chandrakant Deleon Reporting Manager #1: Rita Vogel (Rita Vogel, CORPORATE RESPONSIBILITY OFFICER Was present and assisted with all aspects of the case from positioning to dressing placement) Estimated Blood Loss (ml): 150 IV fluids (ml): 1,100 Urine output (ml): 250 Pathology: none sent Condition: stable Disposition: PACU Indications for Procedure: Maria Isabel Santiago is a 73 yo female presenting for evaluation of sudden onset Left hip pain, inability to ambulate after fall from standing at home. Pt has dementia and most of the history was provided by at bedside. She thinks she fell in the garage or kitchen to the garage but does not remember well. found her down and called EMS. It was my pleasure to have seen and examined Maria Isabel Santiago. In our visit today we have had a chance to go over subjective complaints, physical examination findings and treatments including the natural course history without intervention and various interventional options. Her imaging demonstrates Left IT fracture, 4 part, unstable. On physical exam, pain with log roll left hip, ttp around hip, non ambulatory demonstrates pain with motion of LLE, which is NV intact at this time. I have explained to the patient that this fracture needs stabilization. Based on the patients imaging, physical exam, and the rapid progression and disabling nature of her symptoms, at this time I recommend surgery in the form or a: Left hip IMN fixation. I discussed the risk and benefits of this procedure at length with Maria Isabel Santigao and and family at bedside. Questions were invited and answered, and the patient wishes to proceed as outlined below. I also spoke with medicine on the case and they were worried about possible cardiac issues. EKG was questionable about an old [place]. Trended Troponins were negative. CXR shows mild COPD changes. No active chest pain and she has no other cardiac history known. Cardiology was contacted and Echo was done. There is no absolute contraindication to surgical intervention for this emergent broken hip. While she is higher risk for surgery, there is no optimization that likely will change her outcome in regards to surgery. Her NsQIP score shows a 8.5% risk of any complication. With a lower than average overall risk of surgical treatments for this fracture, which is acceptable. Currently, I am recommendin. Left hip intramedullary nail fixation Description of Procedure: LEFT hip short IMN The patient was seen and examined in the preoperative area. All preoperative pro tocols were followed. Informed consent was obtained risks and benefits of the procedure were discussed at length. Risks including bleeding infection damage to the surrounding tissue and risk of reoperation were discussed with the patient. Risk of anesthesia up to and including was a discussed with the patient. These are outlined in the risk reviewed. They were willing to accept these risks and all of the risks of surgery. The patient was given a weight-based dose of antibiotics in the form of 2 g Ancef. The patient was seen and evaluated by the anesthesia team who deemed them fit for surgery. The site was marked, the patient was willing to proceed with the procedure. The patient was transferred to the operative suite by the Department of anesthesia. There were then drifted off to sleep by the department of anesthesia andGETA anesthesia was used. Once adequate anesthesia had been obtained the patient was transferred to the Grace table and her Left leg was placed in a Grace boot and secured to the table right leg was placed in a well-leg cobian well padded and secured. The post was placed and she was secured appropriately. arms were placed on arm boards and well-padded Preoperative briefing was done with the operative team and everyone was ready for the procedure to start. Xray used to reduce the fracture with Grace table. The patients left leg was then prepped and draped in the normal sterile fashion. Timeout was then performed and all parties in agreement with the procedure to be performed. X-ray was then used to donovan 2 cm proximal to the GT. Skin incision made in line with the femur and blunt dissection taken down to the deep facia which was split. Blut dissetion then taken down to the tip of the GT and the sharp awl used. Optimal starting point achieved on AP and Lateral imaging. Awl was then advaced into the proximal femur. Ball tip guidewire was then passed into the femur. It was confirmed on Ap and laterl. Opening reamer then passed followed by 9, 11 and 13 mm reamers. Then the nail was selected and impacted into place over the wire using flouroscopic guidance. Once in position the lateral guide was placed and skin incisoin made in line with the femur over the lateral aspect. Dissection taken down through the tensor facia which was split inline with its fibers. The guide was seated against bone. Pin was placed through guide for the lag screw to be with in 10mm on Ap and lateral of the subchondarl bone. This was then measured. Appropriate sized compression screw then selected and drilled. Then the lag screw drilled. Lag screw placed over the wire followed by the compression screw. About 7 mm of compression was achieved. Good alignment in AP and lateral shown. The nail was then locked proximally. Distal locking screw was then placed through the jig using similar technique. Screw was drilled and measured and placed. AP and lateral confirmed good placement and good fracture reduction as well as stability in ROM. The guide was then removed from the nail. The wound was then copiously irrigated with normal sterile saline final AP and lateral fluoroscopic imaging confirmed good placement of pins as well as reduction of fracture. The deep fascia was then closed with 0 Vicryl superficial closed 2-0 Vicryl and skin closed with skin taiwo the wound edges approximated very well. The wound was then cleaned and dressed with an optifoam dressing. The patient was then transferred back to their hospital bed. There were awakened by department of anesthesia having tolerated the procedure very well with no complications. The patient was then transported to the postoperative care unit in stable condition.
--- NOTE | 2023-07-07 14:44 | P.PN ---
Subjective Progress Note Date: 07/07/23 This is a 73-year-old female who presented to the emergency department after suffering a mechanical fall while at the neurology office and mis-stepped off the curb and fell landing directly on her left hip and immediately having pain and inability to ambulate. Patient also hit her head while falling and who was with her reports no loss of consciousness and was alert the entire fall. Patient lives half the year in [place] as well as here in [place] and follows with neurologist Dr. Reyes outpatient and her PCP is Dr. Gonzalez when she is here in [place]. 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 Further history obtained from Dylan because patient was recently told she has COPD although was never a smoker and is currently following with neurology undergoing further workup for most likely Alzheimer's. Patient reports she has never smoked and denies any other illicit drug use and drinks approximately 3 ounces of wine per day. Patient had hip x-rays done showing a left comminuted intertrochanteric fracture of the left humeral neck with no other fracture identified. Chest x-ray showed no definite acute radiographic process in the lungs appear clear. Head CT spine done showing no acute fracture or dislocation evident in the cervical spine with no acute intracranial hemorrh age, mass effect, or midline shift seen. Patient was admitted under orthopedic services and we are consulted for medical clearance with medical management. EKG was done showing some inferior lead abnormalities with concerns for myocardial infarction and troponin was obtained and negative and we would recommend cardiology evaluation for cardiac clearance for surgical intervention. Cardiology has been placed on consult. 07/03/2023 Patient is evaluated today she is postoperative left hip IM nail fixation secondary to fall with trauma and left intratrochanteric hip fracture. Patient reports significant pain postoperatively and has having difficulty ambulating with physical therapy. She is also requiring nasal cannula at 2 L does not wear any home oxygen. She does report having intermittent shortness of breath and states that she was recently diagnosed with COPD outpatient. She was having issues with urinary retention and then indwelling catheter has been placed. Cardiology following and an echocardiogram is currently pending labs today show white count of 7.2, hemoglobin 9.6 postoperatively. There is no BMP available for today. Hemodynamically she is stable. On 07/04/2023 Patient is evaluated today sitting up in the bed she continues on 2 L of nasal cannula and having some mild shortness of breath. Patient was also hypoxic and had a decrease in her sodium down to 131 today. She has been receiving IV fluids normal saline at 100 miles per hour. Chest x-ray shows no acute pulmonary disease there is hyperinflation compatible with COPD and chronic elevation of the right hemidiaphragm. Patient will be given IV Lasix 1 and repeat labs in the morning. Patient to work with PT OT daily and recommending to sit up in the chair for all meals. Patient will require subacute rehab her is nervous to take her home as she is having difficulty even sitting on the edge of the bed. She also has indwelling catheter in place for urinary retention. 07/05/2023 Patient is evaluated today she is postoperative day #2 left hip IM nail fixation due to a traumatic fall with fracture of the left humeral neck. Patient reports improvement in her pain management currently on a regimen of Eleva, tramadol. Patient is receiving IV Ferrlecit and also oral iron for an anemia with a hemoglobin of 9.0. Patient has not had iron studies done per recommended to follow up with iron studies outpatient this is a normocytic anemia. 07/06/2023 Patient is seen in follow-up currently sitting up in the chair status post left hip intramedullary nail fixation being followed by orthopedics. Patient has been working with physical therapy continues with weakness and reports continued heaviness of that left lower extremity. Patient has been doing her exercises and elevating while at rest. Patient continues to report abdominal bloating and reports is passing gas and had bowel movements. Patient is urinating with no difficulty. Will add simethicone gas drops as needed. Vital signs are stable. Patient is afebrile with no reported chest pain or shortness of breath. Patient does have incentive spirometer at bedside but has been instructed to continue using at least 10 times every hour until awake. Patient awaiting insurance authorization for rehab. 07/07/2023 Patient is seen in follow-up today status post left hip nail fixation and has been cleared by orthopedics and scheduled to go to rehab today for continued strength and mobility. Patient has received insurance authorization and will be going to [facility]. Patient is afebrile denies chest pain or shortness of breath. Patient is tolerating diet with no reported nausea or vomiting. Patient is having bowel movements and passing gas. Patient reports she continues to feel somewhat bloated and will continue on bowel regimen. Patient follow-up with primary care provider as well as neurologist outpatient. Patient with incentive spirometer at bedside encouraged to continue using at least 10 times every hour and take with her to physical therapy. Patient is medically stable for discharge to [facility] today. Review of Systems Constitutional: Denied any fatigue denied any fever. Cardiovascular: denied any chest pain, palpitations Gastrointestinal: denied any nausea, vomiting, diarrhea, reports is passing gas and having bowel movement, reports feeling bloated Pulmonary: Denies shortness of breath , reports occasional cough Neurologic denied any new focal deficits All inpatient medications were reviewed and appropriate changes in these medications as dictated in the interval history and assessment and plan. PHYSICAL EXAMINATION: GENERAL: The patient is alert and oriented x2, poor historian, Well developed, well nourished. Currently on room air HEENT: Pupils are round and equally reacting to light. EOMI. no scleral icterus. No conjunctival pallor. Normocephalic, atraumatic. No pharyngeal erythema. No thyromegaly. Mucous membranes are dry CARDIOVASCULAR: S1 and S2 muffled PULMONARY: Sounds clear to auscultation with no wheezing or rhonchi noted. ABDOMEN: soft. Nontender on exam. non-distended, normoactive bowel sounds. No palpable organomegaly. MUSCULOSKELETAL: No joint swelling or deformity. EXTREMITIES: No cyanosis, clubbing, or pedal edema. Surgical left hip dressing intact with positive pedal pulses bilaterally NEUROLOGICAL: Gross neurological examination did not reveal any focal deficits. Diffuse weakness SKIN: No rashes. Assessment: Left comminuted intertrochanteric fracture of the left humeral neck status post Mechanical fall while standing and took a wrong step off of curb patient is status post left hip IM nail fixation Headache, secondary to striking head while falling, CT negative for acute process, improved Acute hypoxic respiratory failure , likely due to mild volume overload as patient was slightly hyponatremic after receiving IV fluids. Improved maintained on room air Hyponatremia, hypervolemic as above improved with IV Lasix, improved Normocytic anemia . Recommended to follow up with iron studies outpatient to determine if this is an iron deficiency anemia. History of vulvodynia History of recent chest x-ray showing COPD, although no history and was never a smoker Drinks one glass of wine daily, EtOH use Memory impairment, being worked up for dementia with neurology outpatient Abnormal EKG with concerns of an inferior lead myocardial infarction, troponin was negative echocardiogram was essentially normal with normal LV function. GI prophylaxis DVT prophylaxis: Per orthopedics Full code Plan: Patient currently sitting up in the bed and has been evaluated by physical therapy recommending ECF and patient is agreeable. Patient has received insurance authorization and scheduled for discharge today. Instructed the patient to continue using incentive spirometer at least 10 times every hour while awake Encouraged to increase activity as tolerated with restrictions per orthopedics Continue current bowel regimen Pain management and DVT prophylaxis per orthopedics Patient will need outpatient iron studies with follow-up labs , continue taking oral iron supplements Follow-up with primary care provider Dr. Gonzalez on discharge as well as her neurologist We will continue to follow with orthopedics during hospitalization. Thank you kindly for this consultation. Patient is medically stable for discharge to ECF today The impression and plan of care has been dictated by Giovanna Denton, Nurse Practitioner as directed. Dr. Penny MD I have performed a history and examination and MDM of this patient, discussed the same with the dictator, and agree with the dictator's assessment and plan as written ,documented as a scribe. Based on total visit time, I have performed more than 50% of the visit. Objective - Vital Signs Vital signs: Vital Signs Temp 98.6 F 07/07/23 06:50 Pulse 95 07/07/23 06:50 Resp 16 07/07/23 06:50 BP 163/80 07/07/23 06:50 Pulse Ox 95 07/07/23 06:50 FiO2 Intake & Output 07/06/23 07/07/23 07/07/23 18:59 06:59 18:59 Intake Total 100 Output Total 1100 Balance 100 -1100 Intake: Intake, IV Titration 100 Amount Sodium Ferric Gluconat- 100 Sucrose 125 mg In Sodium Chloride 0.9% 100 ml @ 100 mls/hr IVPB DAILY [facility] Rx#:[id number] Output: Urine 1100 Other: Voiding Method Toilet Bedside Commode # Voids 2 # Bowel Movements 1 - Labs CBC & Chem 7: 07/04/23 06:57 07/05/23 06:40
[2023-07-08] MEDS ORDERED: PANTOPRAZOLE 40 MG TABLET PO SCH (07:30)
== END 2023-07-07 13:03 | DRG 480 ==
LOC: EC 17:04 → 4SSUR 20:42
PROVIDERS: ADMIT Orthopaedic Surgery; ATTEND Orthopaedic Surgery
PROC: 0QS736Z Reposition Left Upper Femur with Intramedullary Internal Fixation Device, Percutaneous Approach (ICD-10-PCS; principal; 2023-07-02 07:30)
DX: S72.142A Displaced intertrochanteric fracture of left femur, initial encounter for closed fracture (principal); J96.01 Acute respiratory failure with hypoxia; E87.1 Hypo-osmolality and hyponatremia; E87.70 Fluid overload, unspecified; F03.90 Unspecified dementia, unspecified severity, without behavioral disturbance, psychotic disturbance, mood disturbance, and anxiety; R33.9 Retention of urine, unspecified; N94.819 Vulvodynia, unspecified; W10.1XXA Fall (on)(from) sidewalk curb, initial encounter; G44.89 Other headache syndrome; W01.198A Fall on same level from slipping, tripping and stumbling with subsequent striking against other object, initial encounter; Z79.1 Long term (current) use of non-steroidal anti-inflammatories (NSAID); Z91.81 History of falling; Z71.3 Dietary counseling and surveillance
CPT/HCPCS: 36415; 51702; 70450; 71045; 71046; 72125; 73502; 80048; 80053; 83735; 84484; 85025; 85610; 85730; 87040; 93005; 93306; 94760; 96361; 96374; 96376; 99285